=== PATIENT | female | born 1965 | race Caucasian/White ===

== ENCOUNTER 2016-08-08 12:16 | Emergency (ER) | payer MEDICAID ==
[2015-05-15 01:15] VITALS: BMI 32.5
[~2016-08-08 12:16] MED LIST: ATIVAN1 MG PO; CYCLOBENZAPRINE5 MG OR; ESGIC TABLET1 TAB PO; FIORICET/ESGIC1 TAB PO; LEVAQUIN750 MG PO; LEXAPRO10 MG PO; MEDROL DOSE PACK4 MG PO; MOBIC7.5 MG PO; MUCINEX600 MG OR; PRILOSEC20 MG PO; ROBITUSSIN AC (10 M1 PO; SOMA350 MG PO; TESSALON PERLE100 MG OR; VENTOLIN HFA18 GM INH
== END 2016-08-08 15:26 | disposition home or self-care (01) ==
LOC: D.ER 12:16
DX: M25.461 Effusion, right knee (principal); M17.11 Unilateral primary osteoarthritis, right knee; E66.9 Obesity, unspecified; M25.571 Pain in right ankle and joints of right foot; M25.561 Pain in right knee; W01.0XXA Fall on same level from slipping, tripping and stumbling without subsequent striking against object, initial encounter; Y93.89 Activity, other specified; Y92.019 Unspecified place in single-family (private) house as the place of occurrence of the external cause; F32.9 Major depressive disorder, single episode, unspecified

== ENCOUNTER 2017-11-12 20:25 | Emergency (ER) | payer SELFPAY ==
[~2017-11-12] VITALS: Ht 165.1 cm; Wt 81.8 kg
[2017-11-12 20:26] VITALS: Ht 165.1 cm; Wt 81.8 kg
[2017-11-12] MEDS ORDERED: QVAR8.7 G1 INH (20:29)
[2017-11-12] MEDS ORDERED: BACTRIM DS TABL1 TAB PO (21:26)
[2017-11-12] MEDS ORDERED: PROVENTIL HFA6.7 GM INH (21:26)
[2017-11-13 02:26] VITALS: BP 144/90
== END 2017-11-12 22:48 | disposition home or self-care (01) ==
LOC: D.ER 20:25
DX: J44.1 Chronic obstructive pulmonary disease with (acute) exacerbation (principal); L03.115 Cellulitis of right lower limb; S80.861A Insect bite (nonvenomous), right lower leg, initial encounter; W57.XXXA Bitten or stung by nonvenomous insect and other nonvenomous arthropods, initial encounter; Y93.89 Activity, other specified; Y92.89 Other specified places as the place of occurrence of the external cause; F17.200 Nicotine dependence, unspecified, uncomplicated

== ENCOUNTER 2020-08-29 19:55 | Inpatient (IN) | payer OTHER ==
[~2020-08-29] VITALS: Ht 165.1 cm; Wt 90.7 kg
[~2020-08-29 19:55] MED LIST changes: +BACTRIM DS TABL1 TAB PO; +PROVENTIL HFA6.7 GM INH; +QVAR8.7 G1 INH
[2020-08-29 20:31] LABS: BASOPHILS 0.5 % (0-2); EOSINOPHILS 0.2 % (0-7); HEMATOCRIT 42.4 % (36.0-48.0); HEMOGLOBIN 13.6 g/dL (12-16); IMMATURE GRANULOCYTES 0.2 % (0-5); LYMPHOCYTE ABS# 1.46 10x3/uL (1.18-3.74); LYMPHOCYTES 24.9 % (15-50); MCH 30.9 pg (26.0-34.0); MCHC 32.1 g/dL (31.0-37.0); MCV 96.4 fL (80.0-100.0); MEAN PLATELET VOLUME 10.8 fL (7.4-10.4); MONOCYTES 7.2 % (2-11); NEUTROPHIL ABS# 3.93 10x3/uL (1.56-6.13); PLATELET COUNT 190 10x3/uL (130-400); RDW 14.1 % (11.5-14.5); WBC 5.9 10x3/uL (4.8-10.8)
[2020-08-29] MEDS ORDERED: PROAIR HFA8.5 G1 INH (20:39)
[2020-08-29 20:42] LABS: CALC OSMOLALITY 276 mosm/kg (275-300); CARBON DIOXIDE 31.6 mmol/L (21.0-32.0); CHLORIDE - SERUM 102 mmol/L (98-107); GLUCOSE 91 mg/dL (74-106); SODIUM 139 mmol/L (136-145); UREA NITROGEN 11 mg/dL (7-18); eGFR NON AFRICAN AMERICAN 61 mL/min (90-120)
[2020-08-29 20:56] LABS: ALBUMIN 2.7 g/dL (3.4-5.0); ALKALINE PHOSPHATASE 30 U/L (30-120); ALT (SGPT) 32 U/L (10-68); PRO BNP 52 pg/mL (0-125); PROTEIN - SERUM 7.1 g/dL (6.4-8.2); TROPONIN-I < 0.017 ng/mL (0.000-0.060)
[2020-08-29 21:05] VITALS: BP 152/96
[2020-08-29 22:12] VITALS: BP 141/83
[2020-08-29] MEDS ORDERED: DOXYCYCLINE HY100 M2 PO (22:56)
[2020-08-29 23:15] VITALS: BP 132/85
[2020-08-30 01:06] VITALS: BP 137/98; BMI 33.3
[2020-08-30 03:01] LABS: UDS - AMPHET NEGATIVE QUAL (NEGATIVE); UDS - BARB NEGATIVE QUAL (NEGATIVE); UDS - BENZO NEGATIVE QUAL (NEGATIVE); UDS - COCAINE NEGATIVE QUAL (NEGATIVE); UDS - OPIATE NEGATIVE QUAL (NEGATIVE); UDS - PCP NEGATIVE QUAL (NEGATIVE); UDS - THC POSITIVE QUAL (NEGATIVE)
[2020-08-30 03:03] LABS: BILIRUBIN NEGATIVE (NEGATIVE); KETONE NEGATIVE (NEGATIVE); NITRITE NEGATIVE (NEGATIVE); UROBILINOGEN NORMAL mg/dL (< 2)
[2020-08-30 04:00] VITALS: BP 126/80
[2020-08-30 06:39] LABS: BASOPHILS 0.2 % (0-2); EOSINOPHILS 0 % (0-7); HEMATOCRIT 43.1 % (36.0-48.0); HEMOGLOBIN 13.9 g/dL (12-16); IMMATURE GRANULOCYTES 0.2 % (0-5); LYMPHOCYTE ABS# 0.82 10x3/uL (1.18-3.74); LYMPHOCYTES 19.2 % (15-50); MCH 30.8 pg (26.0-34.0); MCHC 32.3 g/dL (31.0-37.0); MCV 95.4 fL (80.0-100.0); MEAN PLATELET VOLUME 11.4 fL (7.4-10.4); MONOCYTES 2.1 % (2-11); NEUTROPHIL ABS# 3.34 10x3/uL (1.56-6.13); NEUTROPHILS 78.3 % (40-80); PLATELET COUNT 183 10x3/uL (130-400); RBC 4.52 10x6/uL (4.00-5.40)
[2020-08-30 06:54] LABS: WBC 4.3 10x3/uL (4.8-10.8)
[2020-08-30 07:08] LABS: ALBUMIN 2.5 g/dL (3.4-5.0); ALKALINE PHOSPHATASE 29 U/L (30-120); ALT (SGPT) 27 U/L (10-68); BILIRUBIN - TOTAL 0.15 mg/dL (0.2-1.3); CALC OSMOLALITY 280 mosm/kg (275-300); CALCIUM 9.2 mg/dL (8.5-10.1); CARBON DIOXIDE 28.6 mmol/L (21.0-32.0); CHLORIDE - SERUM 102 mmol/L (98-107); CREATININE - SERUM 0.8 mg/dL (0.6-1.3); MAGNESIUM - SERUM 2.2 mg/dL (1.8-2.4); PHOSPHOROUS 3.4 mg/dL (2.5-4.9); POTASSIUM - SERUM 4.4 mmol/L (3.5-5.1); PROTEIN - SERUM 7.1 g/dL (6.4-8.2); SODIUM 139 mmol/L (136-145); UREA NITROGEN 11 mg/dL (7-18); eGFR NON AFRICAN AMERICAN 78 mL/min (90-120)
[2020-08-30 07:10] LABS: GLUCOSE 177 mg/dL (74-106)
--- NOTE | 2020-08-30 07:33 | NUR ---
RECIEVED BEDSIDE REPORT. BED LOW POSITION, CALL LIGHT IN REACH. PATIENT FREE FROM SIGNS OF DISTRESS. DENIES NEEDS AT THIS TIME. WILL CONTINUE TO MONITOR.
[2020-08-30 09:34] VITALS: BP 155/98
[2020-08-30 13:44] VITALS: BP 145/88
--- NOTE | 2020-08-30 19:45 | NUR ---
RECEIVED BEDSIDE REPORT. PT LAYING IN BED A&O X4. PIV TO LEFT AC, PATENT AND S/L, NO REDNESS OR SWELLING. O2 SAT 97% ON 2L VIA NC. MISSING TEETH. PT ABLE TO AMBULATE AD EBONY. EDUCATED PT ON CL AND NEEDS, VERBALIZED UNDERSTANDING. BED LOW, CL IN REACH.
[2020-08-30 20:00] VITALS: BP 134/79
[2020-08-31 04:00] VITALS: BP 134/84
[2020-08-31 05:37] LABS: BASOPHILS 0.1 % (0-2); EOSINOPHILS 0 % (0-7); HEMATOCRIT 40.3 % (36.0-48.0); HEMOGLOBIN 12.9 g/dL (12-16); IMMATURE GRANULOCYTES 0.6 % (0-5); LYMPHOCYTE ABS# 1.01 10x3/uL (1.18-3.74); MCH 30.6 pg (26.0-34.0); MCV 95.7 fL (80.0-100.0); MEAN PLATELET VOLUME 10.9 fL (7.4-10.4); MONOCYTES 8.6 % (2-11); NEUTROPHILS 75.7 % (40-80); RBC 4.21 10x6/uL (4.00-5.40); RDW 14.1 % (11.5-14.5)
[2020-08-31 05:42] LABS: PLATELET COUNT 227 10x3/uL (130-400); WBC 6.7 10x3/uL (4.8-10.8)
[2020-08-31 05:51] LABS: ALBUMIN 2.4 g/dL (3.4-5.0); ANION GAP 11.2 mmol/L (8-16); BILIRUBIN - TOTAL 0.15 mg/dL (0.2-1.3); CALCIUM 8.9 mg/dL (8.5-10.1); CARBON DIOXIDE 30.5 mmol/L (21.0-32.0); MAGNESIUM - SERUM 2.1 mg/dL (1.8-2.4); PHOSPHOROUS 3.9 mg/dL (2.5-4.9); POTASSIUM - SERUM 4.7 mmol/L (3.5-5.1); PROTEIN - SERUM 6.7 g/dL (6.4-8.2)
--- NOTE | 2020-08-31 06:21 | NUR ---
PT C/O PAIN IN RIGHT EAR AND BACK SPASMS. SHE STATES "I KNOW WHY I USED TO TAKE SOMAS FOR THE BACK SPASMS". I EDUCATED PT THAT I WOULD LET DAY SHIFT NURSE KNOW AND WE WILL REPORT TO THE MD. PT HAS BEEN EDUCATED IN REGARDS TO HER MED REC AND CLAIM HISTORY. PT VERBALIZED UNDERSTANDING. DENIES OTHER NEEDS, CL IN REACH
--- NOTE | 2020-08-31 07:30 | NUR ---
AWAKE AND ALERT. ORIENTED X3. C/O NOT FEELING WELL THIS AM. LUNGS HAVE CRACKLES IN UPPER LOBES AND WHEEZES IN LOWER LOBES, SOMETIMES PRODUCTIVE COUGH NOTED WITH YELLOW SPUTUM. SL TO LEFT AC PATENT WITHOUT REDNESS AT INSERTION SITE. DENIES NEEDS
[2020-08-31 08:52] VITALS: BP 154/78
--- NOTE | 2020-08-31 10:00 | NUR ---
ATE MOST OF BREAKFAST. TOOK AM MEDS WITHOUT DIFFICULTY. DENIES NEEDS.
[2020-08-31 12:29] VITALS: BP 143/77
--- NOTE | 2020-08-31 12:30 | NUR ---
LUNCH SERVED IN ROOM. FEEDS SELF. UP TO BR PER SELF.
[2020-08-31 12:45] VITALS: Ht 165.1 cm; Wt 90.7 kg
--- NOTE | 2020-08-31 15:00 | NUR ---
RESTING QUIETLY IN BED WITH EYES CLOSED.
[2020-08-31 17:12] VITALS: BP 140/91
--- NOTE | 2020-08-31 18:25 | NUR ---
ATE MOST OF SUPPER. NO CHANGES NOTED. DENIES NEEDS.
--- NOTE | 2020-08-31 19:54 | NUR ---
RECEIVED BEDSIDE REPORT. PT LAYING IN BED A&O X4. PIV TO LEFT AC, PATENT AND S/L, NO REDNESS OR SWELLING. O2 SAT 97% ON 2L VIA NC. TELEMETRY IN PLACE, SR 89. EDUCATED PT ON CL AND NEEDS, VERBALIZED UNDERSTANDING. BED LOW, CL IN REACH.
--- NOTE | 2020-08-31 22:19 | NUR ---
PT C/O PAIN IN IV SITE WITH ABX, STATES THAT SHE WANTS IT REMOVED. REMOVED PIV FROM LEFT AC, CATH INTACT, NO REDNESS OR SWELLING. INITIATED NEW PIV TO LEFT WRIST, 20G X1 ATTEMPT, FLUSHED WELL, GOOD RETURN, PT TOLERATED WELL. BED LOW, CL IN REACH.
[2020-09-01 05:48] VITALS: BP 171/104
[2020-09-01 06:04] VITALS: BP 155/85
[2020-09-01 06:46] LABS: BASOPHILS 0.1 % (0-2); EOSINOPHILS 0 % (0-7); HEMATOCRIT 40.4 % (36.0-48.0); HEMOGLOBIN 12.6 g/dL (12-16); IMMATURE GRANULOCYTES 0.9 % (0-5); MCH 30.1 pg (26.0-34.0); MCHC 31.2 g/dL (31.0-37.0); MCV 96.7 fL (80.0-100.0); MEAN PLATELET VOLUME 11.1 fL (7.4-10.4); MONOCYTES 4.3 % (2-11); NEUTROPHIL ABS# 6.27 10x3/uL (1.56-6.13); NEUTROPHILS 81.7 % (40-80); PLATELET COUNT 237 10x3/uL (130-400); RBC 4.18 10x6/uL (4.00-5.40); RDW 14.2 % (11.5-14.5); WBC 7.7 10x3/uL (4.8-10.8)
[2020-09-01 07:15] LABS: IMMUNOGLOBULIN A 259 mg/dL (87-352); IMMUNOGLOBULIN G 1161 mg/dL (586-1602)
[2020-09-01 07:21] LABS: ALBUMIN 2.4 g/dL (3.4-5.0); ALKALINE PHOSPHATASE 26 U/L (30-120); ALT (SGPT) 37 U/L (10-68); BILIRUBIN - TOTAL 0.22 mg/dL (0.2-1.3); CALC OSMOLALITY 288 mosm/kg (275-300); CALCIUM 8.9 mg/dL (8.5-10.1); CARBON DIOXIDE 27.9 mmol/L (21.0-32.0); CHLORIDE - SERUM 106 mmol/L (98-107); CREATININE - SERUM 0.8 mg/dL (0.6-1.3); GLUCOSE 134 mg/dL (74-106); MAGNESIUM - SERUM 2.1 mg/dL (1.8-2.4); POTASSIUM - SERUM 4.7 mmol/L (3.5-5.1); PROTEIN - SERUM 6.4 g/dL (6.4-8.2); SODIUM 143 mmol/L (136-145); UREA NITROGEN 18 mg/dL (7-18); eGFR NON AFRICAN AMERICAN 78 mL/min (90-120)
[2020-09-01 08:27] VITALS: BP 156/83
[2020-09-01 12:43] VITALS: BP 137/85
--- NOTE | 2020-09-01 13:50 | NUR ---
PT HAS BEED VERY TEARFUL ON AND OFF TODAY, COMPLAINTS OF BAD HEADACHE AND BREATHING TREATMENTS TO CLOSE TOGETHER THAT MADE HER CHEST HURT, PT WAS CRYING UNCONTROLLABLY AND CALLED THE COMMUNITY DEVELOPMENT SPECIALIST EARLIER TODAY REQUESTING TO SEE HER DOCTOR. PT WAS GIVEN TYLENTOL FOR HEADACHE AND DR VELEZ WAS IN FOR GURU
[2020-09-01 17:23] VITALS: BP 159/87
[2020-09-01 20:00] VITALS: BP 150/91
--- NOTE | 2020-09-01 20:30 | NUR ---
RESTING WITH EYES CLOSED. RESP EVEN AND UNALBORED. NO DISTRESS NOTED. CL IN REACH
[2020-09-02 05:34] LABS: BASOPHILS 0.1 % (0-2); EOSINOPHILS 0 % (0-7); IMMATURE GRANULOCYTES 1.7 % (0-5); LYMPHOCYTE ABS# 1.17 10x3/uL (1.18-3.74); LYMPHOCYTES 11.8 % (15-50); MCH 30.7 pg (26.0-34.0); MCHC 31.7 g/dL (31.0-37.0); MCV 96.7 fL (80.0-100.0); MEAN PLATELET VOLUME 10.9 fL (7.4-10.4); MONOCYTES 4.7 % (2-11); NEUTROPHIL ABS# 8.12 10x3/uL (1.56-6.13); NEUTROPHILS 81.7 % (40-80); PLATELET COUNT 269 10x3/uL (130-400); RBC 4.24 10x6/uL (4.00-5.40); RDW 14.2 % (11.5-14.5)
[2020-09-02 05:37] LABS: WBC 9.9 10x3/uL (4.8-10.8)
[2020-09-02 05:59] LABS: ALBUMIN 2.5 g/dL (3.4-5.0); ANION GAP 10.2 mmol/L (8-16); BILIRUBIN - TOTAL 0.21 mg/dL (0.2-1.3); CALCIUM 8.9 mg/dL (8.5-10.1); CARBON DIOXIDE 30.5 mmol/L (21.0-32.0); MAGNESIUM - SERUM 1.9 mg/dL (1.8-2.4); PHOSPHOROUS 3.9 mg/dL (2.5-4.9); POTASSIUM - SERUM 4.7 mmol/L (3.5-5.1); PROTEIN - SERUM 6.6 g/dL (6.4-8.2)
[2020-09-02 06:02] LABS: CREATININE - SERUM 1.1 mg/dL (0.6-1.3)
[2020-09-02 07:00] VITALS: BP 145/88
--- NOTE | 2020-09-02 07:51 | NUR ---
RESTING IN BED WITH EYES OPEN, ALERT AND ORIENTED. CURRENTLY RCVING 2L VIA NC. IV LOCATED TO LEFT WRIST CURRENTLY SL. NO CURRENT S/S OF DISTRESS, DENIES CURRENT NEEDS, WILL CONT TO MONITOR.
--- NOTE | 2020-09-02 12:30 | NUR ---
PT C/O SHARP CHEST PAINS, CALLED TELEMETRY AND PER TECH PATIENT IS 78SR, DR GUPTA CAME TO ROOM, CARDIAC WORKUP ORDERED, WELL PROTONIX IV BID. PATIENTS STATES PAIN IS STARTING TO EASE, CONTINUE WITH PLAN OF CARE
--- NOTE | 2020-09-02 12:46 | NUR ---
LOOKED AT EKG. PT STATES CHEST PAIN HAS EASED UP. WAS INSTRUCTED TO ORDER CHEST XRAY. WILL CONT TO MONITOR.
[2020-09-02 13:11] LABS: CKMB 1.4 U/L (0.0-3.6); CREATINE KINASE 54 UL (21-215)
[2020-09-02 13:14] LABS: TROPONIN-I < 0.017 ng/mL (0.000-0.060)
--- NOTE | 2020-09-02 14:30 | NUR ---
PT STATES THAT HER CHEST IS "EMERSON FEELING LIKE IT DID EARLIER" CALLED RUBIA HARDY, AFTER REVIEWING THAT HER CARDIAC WORKUP CAME BACK CLEAR WITH NO CAUSE FOR CONCERN, WAS ADVISED TO GO AHEAD AND CONSULT CARDIOLOGY. WILL CONT TO MONITOR.
--- NOTE | 2020-09-02 14:49 | NUR ---
PT HAS BECOME TEARFUL STATING SHE HAS A HEADACHE, ADMINISTERED HER TYLENOL PER S ORDERS, WILL CONT TO MONITOR.
[2020-09-02 15:07] VITALS: BP 141/82
[2020-09-02 18:53] LABS: CKMB 1.2 U/L (0.0-3.6); CREATINE KINASE 53 UL (21-215)
[2020-09-02 18:58] LABS: TROPONIN-I < 0.017 ng/mL (0.000-0.060)
[2020-09-02 20:42] VITALS: BP 126/70
--- NOTE | 2020-09-02 23:41 | NUR ---
I have reviewed this patient and I concur with the Shift Assessment completed by the Licensed Practical Nurse today this shift.
[2020-09-03 01:46] LABS: CKMB 0.9 U/L (0.0-3.6); CREATINE KINASE 62 UL (21-215)
[2020-09-03 01:48] LABS: TROPONIN-I < 0.017 ng/mL (0.000-0.060)
[2020-09-03 03:06] LABS: IMMUNOGLOBULIN E 267 IU/mL (6-495)
[2020-09-03 06:49] LABS: ALBUMIN 2.6 g/dL (3.4-5.0); ALKALINE PHOSPHATASE 26 U/L (30-120); ALT (SGPT) 61 U/L (10-68); BILIRUBIN - TOTAL 0.26 mg/dL (0.2-1.3); CALC OSMOLALITY 285 mosm/kg (275-300); CALCIUM 9.4 mg/dL (8.5-10.1); CARBON DIOXIDE 30.2 mmol/L (21.0-32.0); CHLORIDE - SERUM 105 mmol/L (98-107); GLUCOSE 130 mg/dL (74-106); MAGNESIUM - SERUM 2.1 mg/dL (1.8-2.4); PHOSPHOROUS 4.3 mg/dL (2.5-4.9); POTASSIUM - SERUM 4.6 mmol/L (3.5-5.1); PROTEIN - SERUM 6.5 g/dL (6.4-8.2); SODIUM 141 mmol/L (136-145); UREA NITROGEN 22 mg/dL (7-18)
[2020-09-03 06:51] LABS: BASOPHILS 0 % (0-2); EOSINOPHILS 0 % (0-7); HEMATOCRIT 41.7 % (36.0-48.0); HEMOGLOBIN 13.3 g/dL (12-16); IMMATURE GRANULOCYTES 2.2 % (0-5); LYMPHOCYTE ABS# 1.43 10x3/uL (1.18-3.74); LYMPHOCYTES 16.3 % (15-50); MCH 30.6 pg (26.0-34.0); MCHC 31.9 g/dL (31.0-37.0); MCV 95.9 fL (80.0-100.0); MEAN PLATELET VOLUME 10.6 fL (7.4-10.4); MONOCYTES 5.9 % (2-11); NEUTROPHIL ABS# 6.61 10x3/uL (1.56-6.13); NEUTROPHILS 75.6 % (40-80); PLATELET COUNT 288 10x3/uL (130-400); RBC 4.35 10x6/uL (4.00-5.40); RDW 14.3 % (11.5-14.5); WBC 8.8 10x3/uL (4.8-10.8)
[2020-09-03 06:55] LABS: CREATININE - SERUM 0.8 mg/dL (0.6-1.3); eGFR NON AFRICAN AMERICAN 78 mL/min (90-120)
[2020-09-03 10:18] VITALS: BP 135/92
[2020-09-03 14:00] VITALS: BP 168/102
[2020-09-03 17:54] VITALS: BP 158/89
--- NOTE | 2020-09-03 18:34 | NUR ---
IN BED, RESTING. FREE FROM SIGNS OF DISTRESS, AROUSES TO VOICE, DENIES NEEDS AT THIS TIME. BED LOW POSITION, CALL LIGHT INR EACH. WILL CONTINUE TO MONITOR.
--- NOTE | 2020-09-03 19:45 | NUR ---
RECEIVED BEDSIDE REPORT. PT LAYING IN BED A&O X4. PIV TO LEFT UPPER ARM, PATENT AND S/L, NO REDNESS OR SWELLING. LUNG SOUNDS DIMINSHED IN LOWER LOBES, WHEEZING IN UPPER LOBES, PRODUCTIVE COUGH, WHITE SPUTUM, O2 SAT 97% ON 2L VIA NC. TELEMETRY IN PLACE, 73SR. PT ABLE TO AMBULATE AD EBONY. EDUCATED PT ON CL AND NEEDS, VERBALIZED UNDERSTANDING. BED LOW, CL IN REACH.
[2020-09-03 20:00] VITALS: BP 149/95
[2020-09-04 04:00] VITALS: BP 149/82
[2020-09-04 06:05] LABS: BASOPHILS 0.3 % (0-2); EOSINOPHILS 0 % (0-7); HEMATOCRIT 40.2 % (36.0-48.0); HEMOGLOBIN 13.2 g/dL (12-16); LYMPHOCYTES 25.1 % (15-50); MCH 30.5 pg (26.0-34.0); MCHC 32.8 g/dL (31.0-37.0); MEAN PLATELET VOLUME 8.6 fL (7.4-10.4); MONOCYTES 8.1 % (2-11); NEUTROPHILS 66.5 % (40-80); PLATELET COUNT 312 10x3/uL (130-400); RBC 4.33 10x6/uL (4.00-5.40); RDW 13.9 % (11.5-14.5); WBC 9.6 10x3/uL (4.8-10.8)
[2020-09-04 06:22] LABS: MCV 92.8 fL (80.0-100.0)
[2020-09-04 06:27] LABS: ALBUMIN 2.5 g/dL (3.4-5.0); ANION GAP 9.2 mmol/L (8-16); BILIRUBIN - TOTAL 0.25 mg/dL (0.2-1.3); CALCIUM 9.3 mg/dL (8.5-10.1); CARBON DIOXIDE 29.8 mmol/L (21.0-32.0); PROTEIN - SERUM 6.1 g/dL (6.4-8.2)
--- NOTE | 2020-09-04 07:25 | NUR ---
REC'D IN ROOM AWAKE AND ALERT. RESP EVEN AND UNLABORED WITH NO DISTRESS NOTED OR VOICED. CAN EXPRESS NEEDS AND WANTS. NO C/O NOTED OR VOICED. ASSESSMENT COMPLETED. C/L IN REACH AT BEDSIDE.
[2020-09-04 10:02] VITALS: BP 132/77
--- NOTE | 2020-09-04 14:12 | MORECARE ---
CASE MANAGEMENT DISCHARGE SUMMARY PATIENT: CHRISTA MORRISON UNIT: [id number] ADM DATE: 08/30/20 AGE: 54 : 61 SEX: F ROOM/BED: D.3789 AUTHOR: KATHLEEN IVERSON PHYSICIAN: REFERRING PHYSICIAN: SAYDA BOLTON MD DATE OF SERVICE: 09/04/20 Case Management Discharge Planning Summary DCP REVIEW SUMMARY ANTICIPATED D/C DATE: EXPECTED LOS : CASE STATUS: DCP Initiated INITIAL REVIEW: 08/30/2020 INITIAL REVIEWER: Zarina Ram FINAL DISCHARGE DISPOSITION: 01 : Home or Self Care (Routine Discharge) FINAL REVIEWER: FINAL REVIEW DATE: DCP Focus Questions & Answers DCP Screen QUESTION: ANSWER High Risk Factors: : Hosp related to CHF, COPD, DM, End Stage Ds, CVA, CA DCP Evaluation QUESTION: ANSWER Patient and/or caregiver agree upon recommended discharge plan? : Yes Patient's current cognitive status: : *Oriented to person, place, situation, time and present Patient's ability to cope with chronic illness : d. No chronic illness Does the patient have the ability to pay for or attain post discharge needs / services? : Yes Functional screen assessment: : Basic needs can adequately be met by self Family / Caregiver's ability to cope with chronic illness: : a. Adequate (ability to meet patient's medical needs, ensures patient attends medical appts.) Physical Status: : Independent with ADL's Equipment needed for post hospitalization: : Nebulizer Is there a likelihood that the patient will require additional services to return to the preadmission environment? : No Living Arrangements: : Home with others Results of this evaluation have been discussed with: : Patient Patient with capacity for self-care or can be cared for in same environment as prior to hospitalization? 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 : No Pharm[facility] name(s): : [facility] NO PCP Planned post hospital services covered by insurance plan? : No Does Patient have transportation to get home and to follow-up medical appointments when discharged from the hospital? : Yes Comments: : HER SISTER Would patient like to participate in any Care Coordination programs (if applicable): : Not applicable Does the patient have electricity at home? : Yes Does the patient have running water in their house? : Yes Comment (running water): : WELL WATER Equipment in use: : None Other Equipment comments: : NEEDS A NEBULIZER Mental health screen: : No mental health history Psychosocial status: : Care provider to others DCP Re-evaluation QUESTION: ANSWER Would patient like to participate in any Care Coordination programs (if applicable): : Not applicable PATIENT: CHRISTA MORRISON ENCOUNTER: [id number] MEDICAL RECORD#: [id number] ADMISSION DATE: 08/30/2020 DISCHARGE DATE: ATTENDING MD: SAYDA RIVERA : AGE: 54 MARITAL STATUS: S DC PLAN ID: [id number] FACILITY: [facility] PRINTED ON: 09/04/20 14:12 CT All edits/amendments must be made on the electronic document DICTATION DATE: 09/04/201410 MEMBERSHIP COUNSELOR: ALFONSO 09/04/20 141 RPT#: [id number] DC DATE: STATUS: ADM IN [facility] [address] [place] [address] END OF REPORT
--- NOTE | 2020-09-04 14:40 | MORECARE ---
CASE MANAGEMENT DISCHARGE SUMMARY PATIENT: CHRISTA MORRISON UNIT: [id number] ADM DATE: 08/30/20 AGE: 54 : 61 SEX: F ROOM/BED: D.2209 AUTHOR: KATHLEEN IVERSON PHYSICIAN: REFERRING PHYSICIAN: SAYDA BOLTON MD DATE OF SERVICE: 09/04/20 Case Management Discharge Planning Summary COMMENTS ENTERED DATE: 09/04/20 14:23 CT COMMENT TYPE: Discharge Planning REVIEWER: Zarina Ram CM met with patient to complete initial dc planning assessment. CM educated patient on the CM role and verbal consent given by patient to complete assessment. 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 At discharge patient plans to return home and feels this is a safe discharge. CM discussed availability of home health, rehab services, and medical equipment. She said that her sister will be her delivery driver/supervisor home. She said that she has well water and electricity at home. She said that they have had a mice problem when the snow and ice hit & they are doing the best they can. She feels safe returning home. She is independent with her care. She does not use a DME. Dr Kaplan wants her to have a nebulizer, I have ordered that through [employer] & they will deliver to the hospital before she is discharged. She did not qualify for home O2, the her lowest O2 sat was 93% while ambulating. Patient did complain about a weekend nurse and would like to speak with the legal manager, I did let [place] know. CM will continue to follow and will assist as needed with dc plans/needs. DCP REVIEW SUMMARY ANTICIPATED D/C DATE: EXPECTED LOS : CASE STATUS: DCP Initiated INITIAL REVIEW: 08/30/2020 INITIAL REVIEWER: Zarina Ram FINAL DISCHARGE DISPOSITION: 01 : Home or Self Care (Routine Discharge) FINAL REVIEWER: FINAL REVIEW DATE: DCP Focus Questions & Answers DCP Screen QUESTION: ANSWER High Risk Factors: : Hosp related to CHF, COPD, DM, End Stage Ds, CVA, CA DCP Evaluation QUESTION: ANSWER Patient and/or caregiver agree upon recommended discharge plan? : Yes Patient's current cognitive status: : *Oriented to person, place, situation, time and present Patient's ability to cope with chronic illness : d. No chronic illness Does the patient have the ability to pay for or attain post discharge needs / services? : Yes Functional screen assessment: : Basic needs can adequately be met by self Family / Caregiver's ability to cope with chronic illness: : a. Adequate (ability to meet patient's medical needs, ensures patient attends medical appts.) Physical Status: : Independent with ADL's Equipment needed for post hospitalization: : Nebulizer Is there a likelihood that the patient will require additional services to return to the preadmission environment? : No Living Arrangements: : Home with others Results of this evaluation have been discussed with: : Patient Patient with capacity for self-care or can be cared for in same environment as prior to hospitalization? 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 : No Pharmacy name(s): : [facility] NO PCP Planned post hospital services covered by insurance plan? : No Does Patient have transportation to get home and to follow-up medical appointments when discharged from the hospital? : Yes Comments: : HER SISTER Would patient like to participate in any Care Coordination programs (if applicable): : Not applicable Does the patient have electricity at home? : Yes Does the patient have running water in their house? : Yes Comment (running water): : WELL WATER Equipment in use: : None Other Equipment comments: : NEEDS A NEBULIZER Mental health screen: : No mental health history Psychosocial status: : Care provider to others DCP Re-evaluation QUESTION: ANSWER Would patient like to participate in any Care Coordination programs (if applicable): : Not applicable PATIENT: CHRISTA MORRISON ENCOUNTER: [id number] MEDICAL RECORD#: [id number] ADMISSION DATE: 08/30/2020 DISCHARGE DATE: ATTENDING MD: SAYDA RIVERA : AGE: 54 MARITAL STATUS: S DC PLAN ID: [id number] FACILITY: [facility] PRINTED ON: 09/04/20 14:40 CT All edits/amendments must be made on the electronic document DICTATION DATE: 09/04/201439 [employer] SOUNDINGS GROUP LEADER: ALFONSO 09/04/201439 RPT#: [id number] DC DATE: STATUS: ADM IN [facility] [address] [place] [address] END OF REPORT
[2020-09-04 14:48] VITALS: BP 142/88
[2020-09-04] MEDS ORDERED: MUCINEX DM ER1 EAC1 PO (15:47)
[2020-09-04] MEDS ORDERED: SINGULAIR10 MG PO (15:47)
[2020-09-04] MEDS ORDERED: DALIRESP250 MCG PO (15:47)
[2020-09-04] MEDS ORDERED: DULERA 200 MCG8.8 GM INH (15:47)
[2020-09-04] MEDS ORDERED: IPRAT-ALBUT 0.5-3 ML UPD (15:48)
[2020-09-04] MEDS ORDERED: OMNICEF300 MG PO (15:49)
[2020-09-04] MEDS ORDERED: ADOXA100 MG PO (15:49)
[2020-09-04] MEDS ORDERED: NICODERM CQ1 EAC3 TOPICAL (15:51)
[2020-09-04] MEDS ORDERED: PREDNISONE10 MG PO (15:51)
--- NOTE | 2020-09-04 18:01 | NUR ---
DC HOME AT THIS TIME VOICE UNDERSTANDING OF DC INSTUCTION. STABLE CONDITION UPON DEPARTURE.
--- NOTE | 2020-09-05 08:45 | MORECARE ---
CASE MANAGEMENT DISCHARGE SUMMARY PATIENT: CHRISTA MORRISON UNIT: [id number] ADM DATE: 08/30/20 AGE: 54 : 61 SEX: F ROOM/BED: D.2209 AUTHOR: KATHLEEN IVERSON PHYSICIAN: REFERRING PHYSICIAN: SAYDA BOLTON MD DATE OF SERVICE: 09/05/20 Case Management Discharge Planning Summary COMMENTS ENTERED DATE: 09/04/20 14:23 CT COMMENT TYPE: Discharge Planning REVIEWER: Zarina Ram CM met with patient to complete initial dc planning assessment. CM educated patient on the CM role and verbal consent given by patient to complete assessment. 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 At discharge patient plans to return home and feels this is a safe discharge. CM discussed availability of home health, rehab services, and medical equipment. She said that her sister will be her straddle truck driver home. She said that she has well water and electricity at home. She said that they have had a mice problem when the snow and ice hit & they are doing the best they can. She feels safe returning home. She is independent with her care. She does not use a DME. Dr Kaplan wants her to have a nebulizer, I have ordered that through [employer] & they will deliver to the hospital before she is discharged. She did not qualify for home O2, the her lowest O2 sat was 93% while ambulating. Patient did complain about a weekend nurse and would like to speak with the concessions manager, I did let [place] know. CM will continue to follow and will assist as needed with dc plans/needs. DCP REVIEW SUMMARY ANTICIPATED D/C DATE: EXPECTED LOS : 0 CASE STATUS: DCP Complete INITIAL REVIEW: 08/30/2020 INITIAL REVIEWER: Zarina Ram FINAL DISCHARGE DISPOSITION: 01 : Home or Self Care (Routine Discharge) FINAL REVIEWER: Zarina Ram FINAL REVIEW DATE: 09/05/2020 DCP Focus Questions & Answers DCP Screen QUESTION: ANSWER High Risk Factors: : Hosp related to CHF, COPD, DM, End Stage Ds, CVA, CA DCP Evaluation QUESTION: ANSWER Patient and/or caregiver agree upon recommended discharge plan? : Yes Patient's current cognitive status: : *Oriented to person, place, situation, time and present Patient's ability to cope with chronic illness : d. No chronic illness Does the patient have the ability to pay for or attain post discharge needs / services? : Yes Functional screen assessment: : Basic needs can adequately be met by self Family / Caregiver's ability to cope with chronic illness: : a. Adequate (ability to meet patient's medical needs, ensures patient attends medical appts.) Physical Status: : Independent with ADL's Equipment needed for post hospitalization: : Nebulizer Is there a likelihood that the patient will require additional services to return to the preadmission environment? : No Living Arrangements: : Home with others Results of this evaluation have been discussed with: : Patient Patient with capacity for self-care or can be cared for in same environment as prior to hospitalization? 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 : No Pharmacy name(s): : [facility] NO PCP Planned post hospital services covered by insurance plan? : No Does Patient have transportation to get home and to follow-up medical appointments when discharged from the hospital? : Yes Comments: : HER SISTER Would patient like to participate in any Care Coordination programs (if applicable): : Not applicable Does the patient have electricity at home? : Yes Does the patient have running water in their house? : Yes Comment (running water): : WELL WATER Equipment in use: : None Other Equipment comments: : NEEDS A NEBULIZER Mental health screen: : No mental health history Psychosocial status: : Care provider to others DCP Re-evaluation QUESTION: ANSWER Would patient like to participate in any Care Coordination programs (if applicable): : Not applicable PATIENT: CHRISTA MORRISON ENCOUNTER: [id number] MEDICAL RECORD#: [id number] ADMISSION DATE: 08/30/2020 DISCHARGE DATE: 09/04/2020 ATTENDING MD: SAYDA RIVERA : AGE: 54 MARITAL STATUS: S DC PLAN ID: [id number] FACILITY: [facility] PRINTED ON: 09/05/20 8:45 CT All edits/amendments must be made on the electronic document DICTATION DATE: 09/05/20844 SELF STORAGE MANAGER: ALFONSO 09/05/20844 RPT#: [id number] DC DATE:09/04/20 STATUS: DIS IN [facility] [address] [place] [address] END OF REPORT
== END 2020-09-04 18:03 | disposition home or self-care (01) | DRG 193 ==
LOC: D.ER 19:55 → D.MS 08-30 00:27 → OBSVTIME 08-30 00:28 → D.MS 08-30 13:35
PROVIDERS: Family Medicine; Family Medicine Adult Medicine; Internal Medicine Pulmonary Disease; ADMIT Emergency Medicine; ATTEND Emergency Medicine
DX: J18.9 Pneumonia, unspecified organism (principal); J96.21 Acute and chronic respiratory failure with hypoxia; J44.1 Chronic obstructive pulmonary disease with (acute) exacerbation; J44.0 Chronic obstructive pulmonary disease with (acute) lower respiratory infection; I10 Essential (primary) hypertension; F32.9 Major depressive disorder, single episode, unspecified; F41.8 Other specified anxiety disorders; M19.90 Unspecified osteoarthritis, unspecified site; F17.200 Nicotine dependence, unspecified, uncomplicated; I20.9 Angina pectoris, unspecified

== ENCOUNTER 2020-09-10 06:04 | Inpatient (IN) | payer OTHER ==
[2020-09-10] VITALS (36 sets, daily range): BP systolic 92–168; BP diastolic 69–99
[~2020-09-10] VITALS: Ht 165.1 cm; Wt 107.5 kg
[~2020-09-10 06:04] MED LIST changes: +ADOXA100 MG PO; +DALIRESP250 MCG PO; +DOXYCYCLINE HY100 M2 PO; +DULERA 200 MCG8.8 GM INH; +IPRAT-ALBUT 0.5-3 ML UPD; +MUCINEX DM ER1 EAC1 PO; +NICODERM CQ1 EAC3 TOPICAL; +OMNICEF300 MG PO; +PREDNISONE10 MG PO; +PROAIR HFA8.5 G1 INH; +SINGULAIR10 MG PO
[2020-09-10 07:32] LABS: BASOPHILS 0.1 % (0-2); EOSINOPHILS 0 % (0-7); HEMATOCRIT 40.9 % (36.0-48.0); HEMOGLOBIN 13.3 g/dL (12-16); LYMPHOCYTES 2.9 % (15-50); MCH 30.5 pg (26.0-34.0); MCHC 32.4 g/dL (31.0-37.0); MCV 94.2 fL (80.0-100.0); MEAN PLATELET VOLUME 8.7 fL (7.4-10.4); PLATELET COUNT 252 10x3/uL (130-400); RBC 4.34 10x6/uL (4.00-5.40); RDW 14.3 % (11.5-14.5); WBC 12.5 10x3/uL (4.8-10.8)
--- NOTE | 2020-09-10 07:32 | NUR ---
TO CT VIA STRETCHER.
[2020-09-10 07:37] LABS: ANION GAP 15.2 mmol/L (8-16); APTT 24.8 SECONDS (22.8-39.4); CARBON DIOXIDE 25.5 mmol/L (21.0-32.0); INR 1.22 (0.85-1.17); POTASSIUM - SERUM 3.7 mmol/L (3.5-5.1); PROTIME 14.3 SECONDS (11.6-15.0)
[2020-09-10 07:42] LABS: ALBUMIN 2.8 g/dL (3.4-5.0); BILIRUBIN - TOTAL 1.08 mg/dL (0.2-1.3); PROTEIN - SERUM 6.4 g/dL (6.4-8.2)
--- NOTE | 2020-09-10 08:00 | NUR ---
BACK TO ROOM. SHEETS AND PANTS SOAKED WITH URINE. ASSISTED INTO A GOWN AND LINENS CHANGED. C/O PAIN. STATES "I JUST CAN'T STAND THIS." MOVING RESTLESSLY. UNABLE TO FIND POSITION OF COMFORT. STATES "I JUST CAN'T GET ENOUGH AIR".
--- NOTE | 2020-09-10 08:12 | NUR ---
PATIENT FOUND STANDING AT BEDSIDE URINATING IN THE FLOOR. STATED "I COULDN'T WAIT". ASSISTED BACK TO BED.
--- NOTE | 2020-09-10 08:33 | NUR ---
PATIENT IS SLEEPING FOLLOWING ADMINISTRATION OF HYDROMORPHONE 1MG IV. VSS.
--- NOTE | 2020-09-10 08:43 | NUR ---
SURGICAL GROUP REINFORCED CONCRETE INSPECTOR HERE.
--- NOTE | 2020-09-10 11:45 | NUR ---
HEART RATE IN 130S SINUS TACHYCARDIA. ASSISTED UP TO BSC TO VOID. HR INCREASED TO 140S. DR. BROOKS INFORMED . ORDER TO ADMINISTER TOTAL OF 30ML/KG OF FLUIDS = 2700ML. IV PUMP NS INCREASED TO 999ML/HR.
--- NOTE | 2020-09-10 12:10 | NUR ---
HEAT TRANSFER TECHNICIAN FOR DR. ANDUJAR PAGED. INFORMED OF PATIENT'S INCREASED HR. HEAT TRANSFER TECHNICIAN ASKS HOW MUCH FLUID PATIENT HAS HAD. INFORMED HER OF DR. BROOKS'S ORDER. WHEN ASKED HOW SOON PATIENT WOULD BE GOIONG TO THE OR STATES "SHE IS AN ADD-ON. I DON'T KNOW IF IT WILL BE IN ONE HOUR OR AT FIVE O'CLOCK. ALSO STATED "WE MAY HAVE TO CANCEL HER FOR TODAY. I DON'T WANT TO TAKE HER TO THE OR WITH A TACHY RATE." THIS NURSE VOICED CONCERN THAT PATIENT'S CONDITION WOULD CONTINUE TO WORSEN. HEAT TRANSFER TECHNICIAN STATED SHE WOULD SPEAK WITH DR. ANDUJAR ON PLAN.
--- NOTE | 2020-09-10 12:20 | NUR ---
VEHICLE LEASING AND RENTAL MANAGER CALLS BACK. STATES PATIENT WILL GO TO OR TODAY BUT IT WILL BE LATER DUE TO NO OR AVAILABLE. STATES WE COULD TX PATIENT TO ICU. THIS NURSE REQUESTED VEHICLE LEASING AND RENTAL MANAGER TO ENTER THAT ORDER.
--- NOTE | 2020-09-10 12:36 | NUR ---
OR CALLS. WILL PICK PATIENT UP SOON. URINE SPECIMEN TO LAB.
--- NOTE | 2020-09-10 12:55 | NUR ---
TO OR VIA STRETCHER.
[2020-09-10 13:06] LABS: BILIRUBIN NEGATIVE (NEGATIVE); KETONE NEGATIVE (NEGATIVE); NITRITE NEGATIVE (NEGATIVE)
[2020-09-10 13:07] LABS: BACTERIA FEW HPF (NONE SEEN); SQUAMOUS EPITHELIAL OCC HPF (0-4); WHITE CELLS - URINE RARE HPF (0-4)
--- NOTE | 2020-09-10 17:10 | NUR ---
ELOISA HARVEY AT BEDSIDE PLACING CENTRAL LINE.
[2020-09-10 19:32] LABS: HEMATOCRIT 40.5 % (36.0-48.0); HEMOGLOBIN 13.2 g/dL (12-16)
[2020-09-11] VITALS (25 sets, daily range): BP systolic 84–120; BP diastolic 63–81; BMI 39.4; BMI 39.3
[2020-09-11 05:05] LABS: BASOPHILS 0 % (0-2); EOSINOPHILS 0 % (0-7); HEMATOCRIT 42.3 % (36.0-48.0); HEMOGLOBIN 13.9 g/dL (12-16); LYMPHOCYTES 2.6 % (15-50); MCHC 32.8 g/dL (31.0-37.0); MCV 94.4 fL (80.0-100.0); MEAN PLATELET VOLUME 9.1 fL (7.4-10.4); MONOCYTES 2.1 % (2-11); NEUTROPHILS 95.3 % (40-80); RBC 4.48 10x6/uL (4.00-5.40); RDW 14.5 % (11.5-14.5)
[2020-09-11 05:23] LABS: PLATELET COUNT 157 10x3/uL (130-400); WBC 8.5 10x3/uL (4.8-10.8)
[2020-09-11 05:51] LABS: BILIRUBIN - TOTAL 0.83 mg/dL (0.2-1.3); CALCIUM 7.8 mg/dL (8.5-10.1); CARBON DIOXIDE 19.6 mmol/L (21.0-32.0); CREATININE - SERUM 1.1 mg/dL (0.6-1.3); PROTEIN - SERUM 4.8 g/dL (6.4-8.2)
[2020-09-11 05:56] LABS: ALBUMIN 1.6 g/dL (3.4-5.0); ANION GAP 16.4 mmol/L (8-16)
--- NOTE | 2020-09-11 14:13 | NUR ---
EKG AT 1411
[2020-09-11 14:35] LABS: ANION GAP 11.8 mmol/L (8-16); CALCIUM 7.6 mg/dL (8.5-10.1); CREATININE - SERUM 1.2 mg/dL (0.6-1.3); MAGNESIUM - SERUM 1.5 mg/dL (1.8-2.4); PHOSPHOROUS 4.3 mg/dL (2.5-4.9); POTASSIUM - SERUM 4.8 mmol/L (3.5-5.1)
[2020-09-12] VITALS (23 sets, daily range): BP systolic 110–150; BP diastolic 73–94
[2020-09-12 08:33] LABS: CALC OSMOLALITY 273 mosm/kg (275-300); CALCIUM 8.4 mg/dL (8.5-10.1); CARBON DIOXIDE 23.6 mmol/L (21.0-32.0); CHLORIDE - SERUM 108 mmol/L (98-107); CREATININE - SERUM 0.8 mg/dL (0.6-1.3); GLUCOSE 86 mg/dL (74-106); MAGNESIUM - SERUM 2.5 mg/dL (1.8-2.4); PHOSPHOROUS 2.2 mg/dL (2.5-4.9); SODIUM 137 mmol/L (136-145); TROPONIN-I < 0.017 ng/mL (0.000-0.060); UREA NITROGEN 16 mg/dL (7-18); eGFR NON AFRICAN AMERICAN 78 mL/min (90-120)
[2020-09-12 09:01] LABS: BASOPHILS 0.1 % (0-2); EOSINOPHILS 0 % (0-7); LYMPHOCYTES 1.5 % (15-50); MCH 31.1 pg (26.0-34.0); MCHC 32.6 g/dL (31.0-37.0); MCV 95.3 fL (80.0-100.0); MEAN PLATELET VOLUME 9.7 fL (7.4-10.4); MONOCYTES 2.1 % (2-11); NEUTROPHILS 96.3 % (40-80); RDW 14.8 % (11.5-14.5)
--- NOTE | 2020-09-12 09:02 | NUR ---
DR. ANDUJAR ROUNDS. DOES NOT WANT LYTE PROTOCOL. OTHER ORDERS RECEIVED. CBC DRAWN, BUT STILL PENDING RESULTS. CONVEYED THIS TO HIM.
[2020-09-12 09:13] LABS: RBC 3.32 10x6/uL (4.00-5.40); WBC 12.3 10x3/uL (4.8-10.8)
[2020-09-12 09:14] LABS: HEMATOCRIT 31.7 % (36.0-48.0); HEMOGLOBIN 10.3 g/dL (12-16); PLATELET COUNT 90 10x3/uL (130-400)
--- NOTE | 2020-09-12 09:43 | NUR ---
CHANGED CVL DRSG USING STERILE TECHNIQUE. TOLERATED WELL. DR. ROSIE MCMANUS. ORDERS RECEIEVED.
[2020-09-12 11:41] LABS: PLATELET ESTIMATE DECREASED
[2020-09-12 11:43] LABS: ROULEAUX OCC
--- NOTE | 2020-09-12 11:47 | NUR ---
UP TO CHAIR AFTER WOUND VAC CHANGED PER ORDER. TOLERATED WELL
--- NOTE | 2020-09-12 14:41 | NUR ---
BACK TO BED W/ ME AND PT. COLOSTOMY CAME LOOSE AND IS CHANGED. RESECURED DRSG OVER ESTELA DRAIN 2.
[2020-09-13] VITALS (24 sets, daily range): BP systolic 108–160; BP diastolic 59–105
[2020-09-13 06:15] LABS: EOSINOPHILS 0 % (0-7); HEMOGLOBIN 10.3 g/dL (12-16); WBC 12.1 10x3/uL (4.8-10.8)
[2020-09-13 06:17] LABS: BASOPHILS 0.2 % (0-2); HEMATOCRIT 30.9 % (36.0-48.0); LYMPHOCYTES 1.9 % (15-50); MCHC 33.3 g/dL (31.0-37.0); MEAN PLATELET VOLUME 9.9 fL (7.4-10.4); MONOCYTES 2.7 % (2-11); NEUTROPHILS 95.2 % (40-80); RBC 3.32 10x6/uL (4.00-5.40); RDW 14.9 % (11.5-14.5)
[2020-09-13 06:27] LABS: PLATELET COUNT 60 10x3/uL (130-400)
[2020-09-13 06:36] LABS: CALC OSMOLALITY 284 mosm/kg (275-300); CALCIUM 8.9 mg/dL (8.5-10.1); CARBON DIOXIDE 24.7 mmol/L (21.0-32.0); CHLORIDE - SERUM 108 mmol/L (98-107); CREATININE - SERUM 0.8 mg/dL (0.6-1.3); GLUCOSE 96 mg/dL (74-106); MAGNESIUM - SERUM 2.5 mg/dL (1.8-2.4); PHOSPHOROUS 1.7 mg/dL (2.5-4.9); POTASSIUM - SERUM 3.9 mmol/L (3.5-5.1); SODIUM 141 mmol/L (136-145); UREA NITROGEN 24 mg/dL (7-18); eGFR NON AFRICAN AMERICAN 78 mL/min (90-120)
--- NOTE | 2020-09-13 08:30 | NUR ---
UP TO CHAIR SAFELY, 1 PERSON ASSIST.
--- NOTE | 2020-09-13 09:45 | NUR ---
DR. ANDUJAR ROUNDS, PULLS NGT AND ORDERS CLD. DR. VELEZ ALSO ROUNDS. NO ORDERS RECEIVED.
--- NOTE | 2020-09-13 11:26 | NUR ---
MOM CALLED, UDPATE GIVEN.
[2020-09-13 12:29] LABS: PLATELET ESTIMATE DECREASED
[2020-09-13 12:30] LABS: ROULEAUX OCC
--- NOTE | 2020-09-13 13:27 | NUR ---
Nutrition follow-up: NGT pulled by Dr. Ellison Clear liquid diet ordered Labs reviewed WT: 251# Pt up to chair RDN will monitor patients diet advancement, tolerance and progress toward nutrition goals. Follow-up: 09/17/20
--- NOTE | 2020-09-13 13:35 | NUR ---
AMBULATING IN ROOM W/ PT. BACK TO BED SAFELY.
[2020-09-14] VITALS (18 sets, daily range): BP systolic 103–160; BP diastolic 69–108
[2020-09-14 05:17] LABS: BASOPHILS 0.2 % (0-2); EOSINOPHILS 0.2 % (0-7); HEMATOCRIT 31.8 % (36.0-48.0); HEMOGLOBIN 10.6 g/dL (12-16); MCH 31.1 pg (26.0-34.0); MCHC 33.4 g/dL (31.0-37.0); MEAN PLATELET VOLUME 10.6 fL (7.4-10.4); MONOCYTES 2.7 % (2-11); NEUTROPHILS 91.9 % (40-80); PLATELET COUNT 65 10x3/uL (130-400); RBC 3.42 10x6/uL (4.00-5.40)
[2020-09-14 05:32] LABS: PLATELET ESTIMATE DECREASED
[2020-09-14 05:40] LABS: ALBUMIN 1.5 g/dL (3.4-5.0); ALKALINE PHOSPHATASE 16 U/L (30-120); ALT (SGPT) 19 U/L (10-68); BILIRUBIN - TOTAL 0.54 mg/dL (0.2-1.3); CALC OSMOLALITY 284 mosm/kg (275-300); CALCIUM 8.8 mg/dL (8.5-10.1); CARBON DIOXIDE 26.3 mmol/L (21.0-32.0); CHLORIDE - SERUM 108 mmol/L (98-107); CREATININE - SERUM 0.7 mg/dL (0.6-1.3); GLUCOSE 88 mg/dL (74-106); LDH 249 U/L (81-234); MAGNESIUM - SERUM 2.2 mg/dL (1.8-2.4); POTASSIUM - SERUM 3.7 mmol/L (3.5-5.1); PROTEIN - SERUM 4.9 g/dL (6.4-8.2); SODIUM 141 mmol/L (136-145); UREA NITROGEN 26 mg/dL (7-18); eGFR NON AFRICAN AMERICAN > 90 mL/min (90-120)
[2020-09-14 05:55] LABS: PHOSPHOROUS 1.5 mg/dL (2.5-4.9)
--- NOTE | 2020-09-14 09:49 | NUR ---
CRITICAL D DIMER REPORTED TO DR. ANDUJAR DURING HIS ROUNDS NOW. HE REPORTS THIS IS FROM SURGERY. ORDERS RECEIVED, HE WILL ENTER.
--- NOTE | 2020-09-14 10:02 | NUR ---
DR. ROSIE MCMANUS. ORDERS RECEIVED.
[2020-09-14 10:05] LABS: INR 1.18 (0.85-1.17); PROTIME 13.9 SECONDS (11.6-15.0)
[2020-09-14 10:06] LABS: APTT 27.1 SECONDS (22.8-39.4); D-DIMER-QUANTITATIVE 7.39 ug/mLFEU (0.20-0.54)
--- NOTE | 2020-09-14 11:11 | NUR ---
DILAUDID MACHINE PRECISION ENGRAVER D/C'D PER ORDER. LINES CHANGED.
--- NOTE | 2020-09-14 11:55 | NUR ---
WOUND VAC CHANGED PER ORDER.
--- NOTE | 2020-09-14 11:56 | OP ---
PATIENT NAME: CHRISTA MORRISON MEDICAL RECORD: [id number] :61 LOCATION:[facility] D.2312 ADMISSION DATE:09/10/20 SURGEON: CONNER ANDUJAR MD DATE OF OPERATION: 09/10/2020 PREOPERATIVE DIAGNOSES: 1. Perforated sigmoid colon. 2. Feculent peritonitis. 3. Sepsis. 4. COPD. 5. Hypertension. POSTOPERATIVE DIAGNOSES: 1. Perforated sigmoid colon. 2. Feculent peritonitis. 3. Sepsis. 4. COPD. 5. Hypertension. 6. Septic shock. PROCEDURES: Exploratory laparotomy with Nayla procedure. SURGEON: Conner Andujar MD. DESCRIPTION OF PROCEDURE: The patient's abdomen was prepped and draped in sterile fashion. A lower midline incision was performed and electrocautery was used to dissect through the subcutaneous tissues and fascia. Once we entered the abdominal cavity, we immediately encountered feculent material. We suctioned out a large amount of feculent material and eventually I was able to pull up an inflamed section of the sigmoid colon, which had an opening present which was about 2 cm in diameter. We elevated the rectosigmoid junction and I made an opening in the mesorectum and transected this proximal rectum using a 55 blue load CHIRS stapler. We then made a small opening in the sigmoid mesocolon and transected the proximal sigmoid colon with a 55 blue load CHRIS stapler. The mesentery was taken down with sequential clamp and tie technique and this portion of the sigmoid colon was sent off for permanent specimen. A 2-0 Prolene was used to jos the proximal end of the rectum. We then irrigated out the abdominal cavity thoroughly with 10 liters of normal saline. We broke up any adhesions that were present in the pelvis and inspected the small bowel and we could see no evidence of any other perforations or necrotic tissue. After 10 liters of fluid, the return of fluid appeared to be fairly clear. I inspected the remainder of the abdomen and saw no evidence of any further abscess pockets or feculent material. 19 round Alex drains were inserted in the bilateral lower quadrants and rested down in the patient's pelvis. We then made an opening in the patient's left upper quadrant and using electrocautery we came down through the subcutaneous tissues and made a cruciate incision on the anterior fascial layer over the rectus muscle. The rectus muscle was opened up through its fiber planes and then a longitudinal incision was made on the posterior fascial sheath. We then eviscerated the distal aspect of the proximal sigmoid colon through the opening. We took down the white line of Toldt distally in order to help mobilize this portion of the colon. The midline fascia was then closed with running #1 looped PDS times 2. We irrigated out the wound bed and placed a piece of Adaptic and a black Gelfoam with a wound VAC. The ostomy was then matured using multiple interrupted 4-0 Vicryl. At this point, a dressing was then applied and an ostomy bag. OPERATIVE REPORT [id number] CHRISTA MORRISON COMPLICATIONS: None. CONDITION: Fair. ANESTHESIA: General endotracheal. BLOOD LOSS: 50 mL. TRANSINT:[id number] Voice Confirmation ID: [id number] DOCUMENT ID: [id number] CONNER ANDUJAR MD at 1156 CC: [id number] DICTATION DATE: 09/10/20 1526 NON LICENSED NUCLEAR PLANT OPERATOR: 09/12/20 0059 ADM IN [place] [id number] [place] [id number]
--- NOTE | 2020-09-14 14:41 | NUR ---
UP WITH PT. TO CHAIR SAFELY.
--- NOTE | 2020-09-14 16:40 | NUR ---
BACK TO BED SAFELY. WATSON REMOVED PER ORDER AND EXTERNAL CATHETER PLACED. EDUCATION PROVIDED. C/O EXTREME PAIN AFTER GETTING UP AND GOING BACK TO BED IN HER BELLY. REQUESTS HANNAH. ALSO DISCUSSES SOME SOCIAL ISSUES AND REQUESTS HER MARTÍN.
[2020-09-15] VITALS (22 sets, daily range): BP systolic 113–144; BP diastolic 73–98
[2020-09-15 06:58] LABS: CALC OSMOLALITY 280 mosm/kg (275-300); CALCIUM 8.2 mg/dL (8.5-10.1); CARBON DIOXIDE 27.1 mmol/L (21.0-32.0); CHLORIDE - SERUM 108 mmol/L (98-107); CREATININE - SERUM 0.6 mg/dL (0.6-1.3); GLUCOSE 80 mg/dL (74-106); MAGNESIUM - SERUM 1.8 mg/dL (1.8-2.4); PHOSPHOROUS 2.1 mg/dL (2.5-4.9); POTASSIUM - SERUM 3.6 mmol/L (3.5-5.1); SODIUM 140 mmol/L (136-145); UREA NITROGEN 21 mg/dL (7-18); eGFR NON AFRICAN AMERICAN > 90 mL/min (90-120)
--- NOTE | 2020-09-15 07:10 | NUR ---
REPORT RECEIVED FROM OFF GOING NURSE AND PATIENT CARE ASSUMED. PATIENT LAYING IN BED ON BACK WITH HOB ELEVATED 30 DEGREES. PATIENT IS AWAKE ALERT AND ORIENTED X 4. VSS. ALL LINES DRAINS COLOSTOMY CHECKED AND PATENT. WOUND VAC ABDOMEN INTACT AND WORKING. VSS. PATIENT DENIES ANY NEEDS OR PAIN. WILL CONTINUE WITH PLAN OF CARE. SR UP X 2 BED IN LOW POSITION AND CALL LIGHT IN REACH.
[2020-09-15 07:11] LABS: HEMATOCRIT 30.8 % (36.0-48.0); HEMOGLOBIN 10.4 g/dL (12-16); MCH 31.7 pg (26.0-34.0); MCHC 33.9 g/dL (31.0-37.0); MCV 93.4 fL (80.0-100.0); MEAN PLATELET VOLUME 10.9 fL (7.4-10.4); PLATELET COUNT 61 10x3/uL (130-400); RBC 3.29 10x6/uL (4.00-5.40); RDW 15.3 % (11.5-14.5)
[2020-09-15 07:15] LABS: WBC 11.5 10x3/uL (4.8-10.8)
--- NOTE | 2020-09-15 07:45 | NUR ---
PATIENT UP TO CHAIR WITH 2 PERSON TRANSFER. PATIENT TOLERATED WELL. CALL LIGHT IN REACH.
[2020-09-15 09:13] LABS: ANISOCYTOSIS 1+; LYMPHOCYTES 7 % (15-50); MONOCYTES 6 % (2-11); NEUTROPHILS 61 % (40-80)
[2020-09-15 10:10] LABS: PLATELET ESTIMATE DECREASED
--- NOTE | 2020-09-15 12:12 | NUR ---
DR VELEZ ON UNIT. NO NEW ORDERS RECEIVED.
--- NOTE | 2020-09-15 12:30 | NUR ---
AT BS. DR VELEZ SPOKE WITH PATIENT AND SPOUSE.
--- NOTE | 2020-09-15 14:59 | NUR ---
MARBLE SIZE FIRM FECAL MATERIAL NOTED IN COLOSTOMY BAG. CHANGED BAG. PATIENT RESTING COMFORTABLY. WILL CONTINUE WITH PLAN OF CARE.
--- NOTE | 2020-09-15 19:03 | NUR ---
RECEIVED BEDSIDE REPORT. ROUNDING COMPLETE. PATIENT IS ALERT AND ORIENTED. PATIENT C/O PAIN. NORCO ADMINISTERED. CALL LIGHT WITHIN REACH. WILL CPOC.
[2020-09-16] VITALS (18 sets, daily range): BP systolic 114–159; BP diastolic 72–108; Ht 165.1 cm; Wt 107.5 kg
[2020-09-16 05:12] LABS: BASOPHILS 0.2 % (0-2); CALC OSMOLALITY 284 mosm/kg (275-300); CALCIUM 8.4 mg/dL (8.5-10.1); CARBON DIOXIDE 31.5 mmol/L (21.0-32.0); CHLORIDE - SERUM 108 mmol/L (98-107); CREATININE - SERUM 0.7 mg/dL (0.6-1.3); EOSINOPHILS 0.3 % (0-7); GLUCOSE 99 mg/dL (74-106); HEMATOCRIT 30.6 % (36.0-48.0); HEMOGLOBIN 10.2 g/dL (12-16); LYMPHOCYTES 5.4 % (15-50); MCH 30.6 pg (26.0-34.0); MCHC 33.2 g/dL (31.0-37.0); MCV 92.2 fL (80.0-100.0); MEAN PLATELET VOLUME 10.4 fL (7.4-10.4); MONOCYTES 6.3 % (2-11); NEUTROPHILS 87.8 % (40-80); PHOSPHOROUS 2.9 mg/dL (2.5-4.9); PLATELET COUNT 60 10x3/uL (130-400); POTASSIUM - SERUM 4.2 mmol/L (3.5-5.1); RBC 3.32 10x6/uL (4.00-5.40); RDW 15.1 % (11.5-14.5); SODIUM 142 mmol/L (136-145); UREA NITROGEN 17 mg/dL (7-18); eGFR NON AFRICAN AMERICAN > 90 mL/min (90-120)
[2020-09-16 05:21] LABS: WBC 14.4 10x3/uL (4.8-10.8)
--- NOTE | 2020-09-16 07:57 | NUR ---
ATTEMPTED TO GET PT UP TO CHAIR FOR BREAKFAST THIS AM. PT STATES, "I DONT WANT TO GET UP RIGHT NOW, I'M HURTING." PT SEEMS VERY GROGGY. CANNOT FINISH A SENTENCE WITHOUT HAVING TO CLOSE HER EYES. SPEECH SEEMS SLURRED. VSS AT THIS ITME. EXPLAINED THAT IT IS NOT TIME FOR PAIN MEDICATION. PT STATES "OKAY". WILL RELAY THIS INFORMATION TO DR. VELEZ ON ROUNDS THIS AM. REFUSES BREAKFAST.
[2020-09-17] VITALS (11 sets, daily range): BP systolic 107–158; BP diastolic 70–90
[2020-09-17 00:21] LABS: BILIRUBIN NEGATIVE (NEGATIVE); KETONE NEGATIVE (NEGATIVE); NITRITE NEGATIVE (NEGATIVE); UROBILINOGEN NORMAL mg/dL (< 2)
[2020-09-17 00:23] LABS: BACTERIA FEW HPF (NONE SEEN); SQUAMOUS EPITHELIAL 0-5 HPF (0-4); WHITE CELLS - URINE 0-5 HPF (0-4)
--- NOTE | 2020-09-17 01:03 | NUR ---
Colostomy wafer and bag changed. Full of both solid formed and liquid brown feces. Stoma flat and bright red, surrounding skin intact. Stoma care performed. Dressing to left ESTELA drain also changed, sutures intact, no sign of infection. Patient tolerated interventions well.
--- NOTE | 2020-09-17 01:15 | NUR ---
External catheter changed, pericare provided. No sign of skin breakdrown. Intervention explained to patient, tolerated well.
[2020-09-17 05:30] LABS: BASOPHILS 0.2 % (0-2); EOSINOPHILS 0.2 % (0-7); HEMOGLOBIN 10.2 g/dL (12-16); LYMPHOCYTES 3.5 % (15-50); MCH 30.3 pg (26.0-34.0); MCHC 32.9 g/dL (31.0-37.0); MCV 92.1 fL (80.0-100.0); MEAN PLATELET VOLUME 11.1 fL (7.4-10.4); NEUTROPHILS 92.1 % (40-80); PLATELET COUNT 71 10x3/uL (130-400); RBC 3.37 10x6/uL (4.00-5.40); RDW 14.9 % (11.5-14.5); WBC 16.9 10x3/uL (4.8-10.8)
--- NOTE | 2020-09-17 05:43 | NUR ---
Shift summary: Pain controlled with prn medication. Woundvac and ESTELA drains intact and patent. Encouraged use of incentive spirometer.
[2020-09-17 05:45] LABS: ALBUMIN 1.2 g/dL (3.4-5.0); ALKALINE PHOSPHATASE 18 U/L (30-120); ALT (SGPT) 11 U/L (10-68); BILIRUBIN - TOTAL 0.45 mg/dL (0.2-1.3); CALC OSMOLALITY 278 mosm/kg (275-300); CALCIUM 8.1 mg/dL (8.5-10.1); CARBON DIOXIDE 29.9 mmol/L (21.0-32.0); CHLORIDE - SERUM 107 mmol/L (98-107); CREATININE - SERUM 0.6 mg/dL (0.6-1.3); GLUCOSE 108 mg/dL (74-106); PROTEIN - SERUM 4.8 g/dL (6.4-8.2); SODIUM 139 mmol/L (136-145); UREA NITROGEN 12 mg/dL (7-18); eGFR NON AFRICAN AMERICAN > 90 mL/min (90-120)
--- NOTE | 2020-09-17 08:19 | NUR ---
Nutrition reassessment: Pt continues with full liquid diet per surgeon S/P colostomy with abdominal wound VAC, ESTELA drains Pts with poor to fair po intake; refusing some meals possibly due to over-sedation per nurse, physician Wt: 250# Labs reviewed Estimated needs remain the same as initial assessment on 09/11/20 Nutrition diagnosis: Inadequate oral intake R/T recent surgery AEB noted continued poor po intake. Nutrition goals: - PO intake will increase to =/> 75% of meals, snacks - Meet est fluid needs - Stable dry wt Nutrition interventions: RDN will order Ensure with meals. Follow-up on progress toward nutrition goals: 3-5 days
--- NOTE | 2020-09-17 09:27 | NUR ---
PT REFUSED TO GET OOB STATES SHE NEEDS PAIN MEDS FOR INCISIONAL PAIN AND ATIVAN AND ZOFRAN. MEDS GIVEN. INSTRUCT I.S. PT STATES THAT SHE DOES DO HER I.S. WHEN REMEMBERING. INST THAT THE ORDERS ARE Q2H.
--- NOTE | 2020-09-17 18:17 | NUR ---
PT JUST ARRIVED TO ROOM 2224. AWAKE AND ALERT. RESP EVEN AND UNLABORED WITH NO DISTRESS NOTED. CAN EXPRESSS NEEDS AND WANTS. NO C/O NOTED OR VOICED AT THIS TIME. COLOSTOMY BAG CHANGES AND ESTELA DRAIN #2 EMPTY WITH 80 ML NOTED. C/L IN REACH AT BEDSIDE.
--- NOTE | 2020-09-18 02:36 | NUR ---
PATIENT HAD COLOSTOMY CHANGED, GIVEN A CHG BED BATH, COMPLETE LINNEN CHANGE, PAIN AND ANXIETY MANAGED WITH THE PRESCRIBED PAIN AND ANXIETY MEDICATIONS, SHE IS CURRENTLY RESTING IN BED WITH HER EYES CLOSED.
[2020-09-18 04:30] VITALS: BP 117/72
--- NOTE | 2020-09-18 08:00 | NUR ---
PATIENT IN BED WITH IV ITNACT. NO COMPLAINTS OR SIGNS OF DISTRESS. BSCDS ON AND WORKING. WOUND VAC INTACT. ESTELA DRAINS X 2 CDI. CALL LIGHT WITHIN REACH.
[2020-09-18 08:56] VITALS: BP 139/82
--- NOTE | 2020-09-18 10:45 | NUR ---
CHANGED SUCTION TRACK ON VAC DRESSING BC MACHINE KEEPS SAYING BLOCKAGE. NO PROBLEMS AT THIS TIME. CALL LIGHT WITHIN REACH.
[2020-09-18 11:59] VITALS: BP 133/81
[2020-09-18 17:00] VITALS: BP 131/84
--- NOTE | 2020-09-18 18:49 | NUR ---
PATIENT IN BED WITH IV INTACT. WOUND VAC AND DRAINS INTACT. COLOSTOMY WORKING WITH NO PROBLEMS. 02 ON. NO COMPLAINTS OR SIGNS OF DISTRESS RIGHT NOW. CALL LIGHT WITHIN REACH.
[2020-09-18 20:00] VITALS: BP 137/80
[2020-09-19 04:00] VITALS: BP 133/87
--- NOTE | 2020-09-19 04:52 | NUR ---
PATIENT PAIN AND ANXIETY MANAGED WITH THE PRESCRIBED PAIN MEDICATION, CURRENTLY RESTING IN BED WITH HER EYES CLOSED.
[2020-09-19 08:10] VITALS: BP 127/74
--- NOTE | 2020-09-19 09:57 | NUR ---
AAOX4 UPON ENTERING, IN BEDSIDE CHAIR EATING BREAKFAST. ADMINISTERED MEDICATION WITH NO DIFFICULTIES. EMPTIES LEFT ABDOMEN ESTELA DRAIN, 50ML. DENIES ANY NEEDS AT THIS TIME. BEDSIDE TABLE OVER LAP, CALL LIGHT WITHIN REACH. WILL CONTINUE POC.
--- NOTE | 2020-09-19 11:00 | NUR ---
PRN NORCO FOR PAIN, PRN ZOFRAN FOR NAUSEA. RESTING IN BED. DENIES FURTHER NEEDS AT THIS TIME. WILL CONTINUE POC.
[2020-09-19 11:31] VITALS: BP 121/85
--- NOTE | 2020-09-19 13:32 | NUR ---
ADMINISTERED MEDICATION. HUNG IV ABX. TOLERATING WELL. RESTING UPRIGHT IN BED. DENIES ANY NEEDS AT THIS TIME. WILL CONTINUE POC.
[2020-09-19 15:25] VITALS: BP 124/86
--- NOTE | 2020-09-19 16:12 | NUR ---
REMOVED X2 ESTELA DRAINS. ONE FROM THE LOWER LEFT ABDOMEN AND ONE FROM THE LOWER RIGHT ABDOMEN. COVERED WITH A PRESSRE DRESSING. TOLERATED WELL. CHAGNED CVL DRESSING, TOLERATED WELL. CHANGED WOUND VAC TO LOWER ABDOMEN. REPORTS PAIN, BUT TOLERATED WELL OVERALL. LEFT RESTING COMFORTABLY. DENIES FURTHER NEEDS AT THIS TIME. WILL CONTINUE POC.
--- NOTE | 2020-09-19 17:00 | NUR ---
PRN ATIVAN FOR ANXIETY. RESTING COMFORTABLY. DENIES FURTHER NEEDS. WILL CONTINUE POC.
--- NOTE | 2020-09-19 18:31 | NUR ---
PRN NORCO FOR PAIN. RESTING IN BED, DENIES FURTHER NEEDS. WILL CONTINUE POC.
[2020-09-19 20:00] VITALS: BP 143/87
--- NOTE | 2020-09-20 03:13 | NUR ---
I have reviewed this patient and I concur with the Shift Assessment completed by the Licensed Practical Nurse today this shift.
[2020-09-20 04:00] VITALS: BP 134/83
--- NOTE | 2020-09-20 08:00 | NUR ---
PATIENT IN BED WITH IV INTACT. SLEEPING AT THIS TIME. NO SIGNS OF DISTRESS. CALL LIGHT WITHIN REACH.
[2020-09-20 08:46] VITALS: BP 146/90
[2020-09-20 10:30] LABS: BASOPHILS 0.2 % (0-2); EOSINOPHILS 0.1 % (0-7); HEMATOCRIT 29.7 % (36.0-48.0); HEMOGLOBIN 9.8 g/dL (12-16); LYMPHOCYTES 2.5 % (15-50); MCH 30.4 pg (26.0-34.0); MCHC 33.1 g/dL (31.0-37.0); MCV 92.1 fL (80.0-100.0); MEAN PLATELET VOLUME 10.9 fL (7.4-10.4); MONOCYTES 4.6 % (2-11); NEUTROPHILS 92.6 % (40-80); RBC 3.22 10x6/uL (4.00-5.40); RDW 14.4 % (11.5-14.5); WBC 17.6 10x3/uL (4.8-10.8)
[2020-09-20 10:32] LABS: PLATELET COUNT 217 10x3/uL (130-400)
[2020-09-20 10:41] LABS: ALBUMIN 1.3 g/dL (3.4-5.0); ALKALINE PHOSPHATASE 24 U/L (30-120); ALT (SGPT) 12 U/L (10-68); BILIRUBIN - TOTAL 0.32 mg/dL (0.2-1.3); CALC OSMOLALITY 269 mosm/kg (275-300); CALCIUM 7.9 mg/dL (8.5-10.1); CARBON DIOXIDE 34.8 mmol/L (21.0-32.0); CHLORIDE - SERUM 101 mmol/L (98-107); CREATININE - SERUM 0.6 mg/dL (0.6-1.3); GLUCOSE 100 mg/dL (74-106); POTASSIUM - SERUM 4.5 mmol/L (3.5-5.1); PROTEIN - SERUM 5.1 g/dL (6.4-8.2); SODIUM 136 mmol/L (136-145); UREA NITROGEN 8 mg/dL (7-18); eGFR NON AFRICAN AMERICAN > 90 mL/min (90-120)
[2020-09-20 13:10] VITALS: BP 154/81
--- NOTE | 2020-09-20 13:15 | NUR ---
PATIENT COLOSTOMY CHANGED AT THIS TIME.
--- NOTE | 2020-09-20 13:31 | NUR ---
Nutrition follow-up: Diet order: Regular PO intake ~25% average of meals; pt with some nausea per nurse Labs reviewed Wt: 236# +BM Drains removed; wound vac to abdomen remains Recommend: Pt may benefit from an appetite stimulant; Fady nutritional supplement, 1 pkt BID mixed in juice; daily multivitamin, 220 gm zinc, 1000 mg vitamin C to aid with wound healing. RDN will order Ensure with meals Will follow-up on progress toward nutrition goals in 3-5 days.
--- NOTE | 2020-09-20 14:30 | NUR ---
PATIENT UP TO CHAIR AT THIS TIME. BATH AND SHAMPOO DONE BY CONFERENCE PRODUCER. BED CHANGED. CALL LIGHT WITHIN REACH.
[2020-09-20 17:55] VITALS: BP 119/82
[2020-09-20 20:00] VITALS: BP 128/88
--- NOTE | 2020-09-21 02:09 | NUR ---
PT GIVEN ATIVAN FOR ANXIETY, PT CRYING IN BED DUE TO UNPLANED HOSPITALIZATION, WILL CONT TO MONITOR
--- NOTE | 2020-09-21 04:24 | NUR ---
I have reviewed this patient and I concur with the Shift Assessment completed by the Licensed Practical Nurse today this shift.
[2020-09-21 09:14] VITALS: BP 136/77
--- NOTE | 2020-09-21 11:52 | MORECARE ---
CASE MANAGEMENT DISCHARGE SUMMARY PATIENT: CHRISTA MORRISON UNIT: [id number] ADM DATE: 09/10/20 AGE: 54 : 61 SEX: F ROOM/BED: D.2224 AUTHOR: ZAYRA,DOC PHYSICIAN: REFERRING PHYSICIAN: ASHLEY ANDUJAR MD DATE OF SERVICE: 09/21/20 Case Management Discharge Planning Summary DCP REVIEW SUMMARY ANTICIPATED D/C DATE: EXPECTED LOS : CASE STATUS: DCP Initiated INITIAL REVIEW: 09/10/2020 INITIAL REVIEWER: Betzy Erwin FINAL DISCHARGE DISPOSITION: : FINAL REVIEWER: FINAL REVIEW DATE: DCP Focus Questions & Answers QUESTION: ANSWER : PATIENT: CHRISTA MORRISON ENCOUNTER: [id number] MEDICAL RECORD#: [id number] ADMISSION DATE: 09/10/2020 DISCHARGE DATE: ATTENDING MD: ASHLEY DALTON : AGE: 54 MARITAL STATUS: S DC PLAN ID: [id number] FACILITY: [facility] PRINTED ON: 09/21/20 11:52 CT All edits/amendments must be made on the electronic document DICTATION DATE: 09/21/20 115 FIELD ASSEMBLY SUPERVISOR: DM 09/21/20 1152 RPT#: [id number] DC DATE: STATUS: ADM IN [facility] [address] [place] [address] END OF REPORT
--- NOTE | 2020-09-21 12:04 | MORECARE ---
CASE MANAGEMENT DISCHARGE SUMMARY PATIENT: CHRISTA MORRISON UNIT: [id number] ADM DATE: 09/10/20 AGE: 54 : 61 SEX: F ROOM/BED: D.2224 AUTHOR: ZAYRA,DOC PHYSICIAN: REFERRING PHYSICIAN: ASHLEY ANDUJAR MD DATE OF SERVICE: 09/21/20 Case Management Discharge Planning Summary COMMENTS ENTERED DATE: 09/21/20 11:56 CT COMMENT TYPE: Discharge Planning REVIEWER: Betzy Erwin CM met with patient couple of days ago at bedside after obtaining verbal consent. CM discussed availability / needs of home health, REHAB and medical equipment. She previously lived at home with family and was independent. I talked with her about inpatient rehab and she was agreeable to rehab. CM to follow and assist as needed. DCP REVIEW SUMMARY ANTICIPATED D/C DATE: EXPECTED LOS : CASE STATUS: DCP Initiated INITIAL REVIEW: 09/10/2020 INITIAL REVIEWER: Betzy Erwin FINAL DISCHARGE DISPOSITION: : FINAL REVIEWER: FINAL REVIEW DATE: DCP Focus Questions & Answers DCP Screen QUESTION: ANSWER High Risk Factors: : None Walking limitation: Patient stated self rated walking limitation present? : Yes Age: : 43 - 62 Prior living environment: : Lives with others Disability ranking: : Grade 3: Moderate disability DCP Evaluation QUESTION: ANSWER Patient's ability to cope with chronic illness : d. No chronic illness Would patient like to participate in any Care Coordination programs (if applicable): : Not applicable Mental health screen: : No mental health history DCP Re-evaluation QUESTION: ANSWER Would patient like to participate in any Care Coordination programs (if applicable): : Not applicable PATIENT: CHRISTA MORRISON ENCOUNTER: [id number] MEDICAL RECORD#: [id number] ADMISSION DATE: 09/10/2020 DISCHARGE DATE: ATTENDING MD: ASHLEY DALTON : AGE: 54 MARITAL STATUS: S DC PLAN ID: [id number] FACILITY: [facility] PRINTED ON: 09/21/20 12:04 CT All edits/amendments must be made on the electronic document DICTATION DATE: 09/21/20 120 MACHINIST SUPERVISOR OUTSIDE: ALFONSO 09/21/20 1204 RPT#: [id number] DC DATE: STATUS: ADM IN [facility] [address] [place] [address] END OF REPORT
--- NOTE | 2020-09-21 13:14 | NUR ---
OCCUPATIONAL THERAPY EVALUATION IS STILL PENDING. I HAVE DISCUSSED HER WITH THE TH[facility] NURSE AND THAT THIS WOULD BE REQUIRED IN ORDER TO SUBMIT FOR AUTH. I WILL CONTINUE TO FOLLOW. LUAN DAILY RN CLINICAL LIAISON, INPATIENT REHAB.
[2020-09-21 13:24] VITALS: BP 118/74
--- NOTE | 2020-09-21 14:39 | NUR ---
PATIENT REFUSING WOUND VAC CHANGE AT THIS TIME. STATES SHE IS NOT RELAXED ENOUGH. NOT TIME FOR PAIN MED OR ANXIETY MED. WILL TRY AGAIN LATER. CALL LIGHT IN REACH.
--- NOTE | 2020-09-21 15:52 | NUR ---
PATIENT WOUND VAC CHANGED AT THIS TIME. WOUND BED PINK WITH LIGHT YELLOW/PINK DRAINAGE. SMALL AMOUNT. PATIENT TOLERATED WITH SMALL AMOUNT OF PAIN. CANISTER ALMOST FULL, CHANGED AT THS TIME. CALL LIGHT WITHIN REACH.
[2020-09-21 18:05] VITALS: BP 99/76
--- NOTE | 2020-09-21 18:52 | NUR ---
PATIENT IN BED WITH IV INTACT. RECIEVED ZOFRAN AND ATIVAN. O2 ON. CALL LIGHT WITHIN REACH.
--- NOTE | 2020-09-22 04:31 | NUR ---
PT RIVET HEATER GAS LIGHT REQUEST ATIVAN AND ZANAFLEX AT THIS TIME. IV INTACT ABX HUNG. WILL CONT TO MONITOR.
--- NOTE | 2020-09-22 04:40 | NUR ---
I have reviewed this patient and I concur with the Shift Assessment completed by the Licensed Practical Nurse today this shift.
--- NOTE | 2020-09-22 09:08 | NUR ---
AAOX4 UPON ENTERING. MEDICATIONS GIVEN, NO DIFFICULTIES. COMPLAINING OF PAIN 10/10 IN ABDOMEN AND NAUSEA. GAVE NORCO AND ZOFRAN. SITTING UP RIGHT. DENIES FURTHER NEEDS. BED IN LOWEST POSITION, BED RAILS X2, CALL LIGHT WITHIN REACH. WILL CONTINUE POC. ASSESSMENT PERFORMED AT THIS TIME.
--- NOTE | 2020-09-22 11:49 | NUR ---
PHYSICAL THERAPY HELPED PATIENT TO BEDSIDE CHAIR. DENIES ANY NEEDS AT THIS TIME. WILL CONTINUE POC.
[2020-09-22 11:59] VITALS: BP 123/75
--- NOTE | 2020-09-22 12:18 | NUR ---
HUNG IV ABX, TOLERATING WELL. PRN ATIVAN FOR ANXIETY. SITTING IN BEDSIDE CHAIR. DENIES FURTHER NEEDS. WILL CONTINUE POC.
--- NOTE | 2020-09-22 13:12 | NUR ---
I have reviewed this patient and I concur with the Shift Assessment completed by the Licensed Practical Nurse today this shift.
--- NOTE | 2020-09-22 14:04 | NUR ---
ZOFRAN FOR NAUSEA. IN BEDSIDE CHAIR. WILL CONTINUE POC.
--- NOTE | 2020-09-22 14:19 | NUR ---
FULL LINEN CHANGE. AMBUALTED BACK TO BED WITH EASE. RESTIN, DENIES NEEDS. WILL CONTINUE POC.
--- NOTE | 2020-09-22 16:35 | NUR ---
PRN NORCO FOR PAIN. ONLY BECOMES TEARFUL AFTER WALKING INTO ROOM. DENIES FURTHER NEEDS. WILL CONTINUE POC.
--- NOTE | 2020-09-22 17:11 | NUR ---
RESTING IN BED. DENIES ANY NEEDS AT THIS TIME. WILL CONTINUE POC.
--- NOTE | 2020-09-22 19:17 | NUR ---
PATIENT RESTING IN BED WITH NO S/S OF DISTRESS AND GUEST AT BEDSIDE. PATIENT REQUESTED ZANAFLEX WITH NIGHT MEDS. BED IN LOWEST POSITION AND CALL LIGHT IN REACH. ENCOURAGED PATIENT TO CALL WITH NEEDS.
--- NOTE | 2020-09-22 19:49 | NUR ---
ADMINISTERED MEDS PER ORDERS. PATIENT JIMMY WELL. ENCOURAGED TO CALL WITH NEEDS.
[2020-09-22 22:16] VITALS: BP 112/75
[2020-09-23 00:08] VITALS: BP 119/65
[2020-09-23 04:37] VITALS: BP 94/54
--- NOTE | 2020-09-23 07:15 | NUR ---
AWAKE AND ALERT. ORIENTED X3. NO C/O AT THIS TIME. LUNGS ARE CLEAR BILATERALLY, NO COUGH NOTED. SKIN IS INTACT WITHOUT REDNESS EXCEPT WOUND TO LOWER MID ABDOMEN WHICH HAS A WOUND VAC IN PLACE WITH SCANT SEROUS DRAINAGE. COLOSTOMY IS PATENT WITH SOFT ALMOST LIQUID LIGHT BROWN STOOL. CENTRAL LINE TO LEFT IJ IS PATENT WITHOUT REDNESS AT INSERTION SITE. DENIES NEEDS.
--- NOTE | 2020-09-23 07:18 | NUR ---
PURE WICK IS IN PLACE WITH SCANT OUTPUT.
--- NOTE | 2020-09-23 09:09 | NUR ---
ATE ONLY A SMALL PART OF BREAKFAST. TOOK AM MEDS WITHOUT DIFFICULTY. REQUESTED AND GIVEN ONE ATIVAN PO FOR C/O SPASMS IN BACK. WILL MONITOR
[2020-09-23 09:11] VITALS: BP 119/68
--- NOTE | 2020-09-23 11:00 | NUR ---
RESTING QUIETLY IN BED. DENIES NEEDS.
[2020-09-23 12:51] VITALS: BP 133/76
--- NOTE | 2020-09-23 14:00 | NUR ---
ATE ONLY A FEW BITES OF LUNCH. UP IN CHIAR AT BEDSIDE WITH ONE PERSON MIN ASSIST. PERFORMING BED BATH AT THIS TIME. UP TO BR WITH ONE PERSON MIN ASSIST. VOIDED CLEAR YELLOW URINE WITHOUT DIFFICULTY. EMPTIED COLOSTOMY WHILE SITTING UP.
[2020-09-23 16:32] VITALS: BP 107/73
--- NOTE | 2020-09-23 17:00 | NUR ---
SITTING UP IN BED FOR SUPPER. UNABLE TO EAT R/T C/O GAS. WILL MONITOR.
--- NOTE | 2020-09-23 17:30 | NUR ---
SPOKE WITH DR. ISMAEL RICHARDSON C/O MELLISSA. NEW ORDERS RECEIVED.
--- NOTE | 2020-09-23 20:00 | NUR ---
PATIENT RESTING IN BED WITH NO S/S OF DISTRESS AND DENIES NEEDS AT THIS TIME. BED IN LOWEST POSITION AND CALL LIGHT IN REACH. ENCOURAGED PATIENT TO CALL WITH NEEDS.
--- NOTE | 2020-09-23 20:00 | NUR ---
CLEANED PATIENT AFTER INCONTINENCE. PATIENT VOIDED AND HAD A SMALL BM. PATIENT REQUESTED TRAZADONE WITH NIGHT MEDS AND DENIES OTHER NEEDS AT THIS TIME. BED IN LOWEST POSITION AND CALL LIGHT IN REACH. ENCOURAGED TO CALL WITH NEEDS.
[2020-09-23 22:06] VITALS: BP 111/69
[2020-09-24 08:00] VITALS: BP 132/82
--- NOTE | 2020-09-24 09:07 | NUR ---
PATIENT IS A MANAGED MEDICARE AND HAS HER OT EVALUATION STILL PENDING. IN ADDITION TO THAT, SHE HAS REFUSED 4 OUT OF THE LAST 6 PHYSICAL THERAPY SESSIONS. RIGHT NOW IT DOES NOT LOOK LIKE SHE WILL BE ABLE TO PARTICIPATE IN THE REQUIRED 3 HOURS OF THERAPY, BUT WE WILL CONTINUE TO FOLLOW AND COMPLETE HER SCREEN AFTER OT AND PT TODAY. LUAN DAILY RN CLINICAL LIAISON, INPATIENT REHAB.
[2020-09-24 12:11] VITALS: BP 141/83
[2020-09-24 13:50] LABS: BASOPHILS 1.5 % (0-2); EOSINOPHILS 0.1 % (0-7); HEMATOCRIT 29.6 % (36.0-48.0); HEMOGLOBIN 9.4 g/dL (12-16); MCH 29.5 pg (26.0-34.0); MCHC 31.6 g/dL (31.0-37.0); MCV 93.3 fL (80.0-100.0); MEAN PLATELET VOLUME 9.1 fL (7.4-10.4); MONOCYTES 6.4 % (2-11); RBC 3.18 10x6/uL (4.00-5.40); RDW 14.4 % (11.5-14.5); WBC 13.1 10x3/uL (4.8-10.8)
[2020-09-24 14:02] LABS: ALBUMIN 1.4 g/dL (3.4-5.0); ALKALINE PHOSPHATASE 48 U/L (30-120); ALT (SGPT) 30 U/L (10-68); BILIRUBIN - TOTAL 0.28 mg/dL (0.2-1.3); CALC OSMOLALITY 268 mosm/kg (275-300); CALCIUM 8.5 mg/dL (8.5-10.1); CARBON DIOXIDE 34.7 mmol/L (21.0-32.0); CHLORIDE - SERUM 97 mmol/L (98-107); CREATININE - SERUM 0.8 mg/dL (0.6-1.3); GLUCOSE 142 mg/dL (74-106); POTASSIUM - SERUM 4.6 mmol/L (3.5-5.1); PROTEIN - SERUM 5.9 g/dL (6.4-8.2); SODIUM 134 mmol/L (136-145); UREA NITROGEN 10 mg/dL (7-18); eGFR NON AFRICAN AMERICAN 78 mL/min (90-120)
[2020-09-24 14:27] LABS: PLATELET COUNT 421 10x3/uL (130-400)
[2020-09-24 15:32] VITALS: BP 113/71
--- NOTE | 2020-09-24 17:32 | NUR ---
PATIENT WOUND VAC CHANGED AT THIS TIME. TOLERATED WITH SMALL AMOUNT OF PAIN. WOUND BED CLEAN AND PINK. SEROUS DRAINAGE. LEFT SCVL INTACT. NO COMPLAINTS AT THIS TIME. CALL LIGHT WITHIN REACH.
[2020-09-24 19:37] VITALS: BP 110/71
--- NOTE | 2020-09-24 20:45 | NUR ---
REC'D WALKING ROUNDS CHGE OF SHIFT SUPINE POSITION EYES CLOSED RESP.DEEP AND EVEN HOB UP 30 DEGREES.WILL CONTINUE TO MONITOR
[2020-09-25 04:03] VITALS: BP 110/69
--- NOTE | 2020-09-25 05:58 | NUR ---
I have reviewed this patient and I concur with the Shift Assessment completed by the Licensed Practical Nurse today this shift.
[2020-09-25] MEDS ORDERED: MIRALAX17 GM PO (08:32)
[2020-09-25] MEDS ORDERED: PULMICORT0.5 MG/21 UPD (08:32)
[2020-09-25] MEDS ORDERED: PEPCID PO (08:32)
[2020-09-25] MEDS ORDERED: COLACE100 MG PO (08:32)
[2020-09-25] MEDS ORDERED: PERFOROMIS20 MCG/21 UPD (08:32)
[2020-09-25] MEDS ORDERED: FLORAJEN DIGES1 EACH PO (08:32)
[2020-09-25] MEDS ORDERED: HYDROCODON-ACE1 EA10 PO (08:34)
[2020-09-25 08:45] VITALS: BP 117/79
--- NOTE | 2020-09-25 08:59 | NUR ---
ALERT AND ORIENTED. ASSESSMENT COMPLETE. BED LOW. CALL FU AND PERSONAL ITEMS IN REACH. WILL CONTINUE TO MONITOR.
[2020-09-25 09:55] LABS: % SATURATION 12 % (15-55); IRON 14 ug/dl (35-150); TOTAL IRON BIND CAPACITY 111 ug/dl (260-445); UNSAT IRON BIND CAPACITY 97 ug/dl (150-375)
--- NOTE | 2020-09-25 10:07 | NUR ---
WENT UP TO SEE THE PATIENT THIS AM. SHE STATED SHE WANTS TO COME TO REHAB. WE DISCUSSED THAT SHE WAS GOING TO HAVE TO PARTICIPATE WITH THERAPY AND NOT REFUSE BECAUSE PART OF THE REQUIREMENTS FOR INPATIENT REHAB IS THAT SHE BE ABLE TO DO 3 HOURS OF THERAPY 5 DAYS A WEEK. SHE HAS STATED HER UNDERSTANDING. I AM GOING TO ASK PHYSICAL THERAPY AND OCCUPATIONAL THERAPY TO PLEASE SEE HER THIS AM AND PUT IN NOTES. I CAN CALL HER INSURANCE COMPANY FOR AUTH IF HER THERAPY NOTES LOOK GOOD. MY MAIN CONCERN HERE IS THAT SHE HAD HER OXYGEN OFF FOR MAYBE A MINUTE AND HER SATS WERE 82%, ONCE BACK ON THE 4L N/C IN ALMOST 5 MINUTES SHE WAS STILL SITTING AT 88%. FLOORWALKER IN THE ROOM WITH HER WHEN I LEFT. I DID ENCOURAGE HER TO NOT TALK AND TO TAKE DEEP BREATHS. HER HEART RATE WAS >120. I WILL WAIT FOR THERAPY NOTES AND THEN DISCUSS HER WITH THE BUTTONHOLE MAKER HAND. LUAN DAILY RN CLINICAL LIAISON, INPATIENT REHAB.
--- NOTE | 2020-09-25 10:17 | NUR ---
OT NOTE: PT DOING BETTER TODAY. REPORTS THAT SHE FEELS A LITTLE BETTER.. C/O GAS PAIN. BED MOB WITH MOD ASSIST; MOD ASSIST TO GET FEET ON FLOOR; GOOD SITTING BALANCE. ABLE TO PERFORM SIMPLE GROOMING TASKS WITH SET UP TO WASH FACE AND HANDS; MIN ASSIST WITH DONNING GOWN; MAX ASSIST FOR DONNING SOCKS DUE TO ABD PAIN WHEN BENDING OVER.. PT WILL BENEFIT FROM SOCK AIDE AND /OR DRESSING STICK. SIT TO STAND WITH MIN ASSIST WITH USE OF WALKER; IN ROOM AMBULATION WITH WALKER AND MIN ASSIST.. PT DOING WELL BUT SOB WITH MIN EXERTION. PT MUCH MORE MOTIVATED TODAY. 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 NII KIRKPATRICK, OTR/L [phone]
[2020-09-25 12:00] VITALS: BP 115/62
--- NOTE | 2020-09-25 13:52 | NUR ---
200CC EMPTIED FROM OSTOMY BAG.
--- NOTE | 2020-09-25 13:54 | NUR ---
Nutrition reassessment: Diet order: Regular as tolerated PO intake has improved to ~70% average of some meals; po intake poor yesterday due to c/o gas. Colostomy working Labs reviewed Wound VAC continues to abdomen Ht: 5'5" Wt: 236# Estimated needs based on AdjBW of 70 [id number] kcal (25-35 kcal/kg AdjBW) 70-105 gm protein (1.0-1.5 gm/kg AdjBW) [id number] ml fluid or per MD Nutrition diagnosis: Inadequate oral intake R/T excess gas AEB po intake < 75% of meals, snacks Nutrition goals: - Meet est fluid needs - Stable wt - PO intake will increase to =/> 75% of meals, snacks for wound healing Nutrition interventions: Will provide food choices with selective menus and honor food preferences. Recommend: Daily MVI, 220 mg zinc, 1000 mg vitamin C to aid with wound healing. Also Fady nutritional supplement, 1 pkt BID mixed in juice for wound healing. RDN will follow-up on pts progress toward nutrition goals in 3-5 days.
--- NOTE | 2020-09-25 14:49 | NUR ---
I HAVE RECEIVED AUTHORIZATION FROM THE [employer] FOR REHAB. AUTH # IS [id number]. WE WILL BE ABLE TO BRING HER LATER TODAY AFTER HER ELECTRONIC SCREEN IS COMPLETED. I HAVE NOTIFIED NII ROCA RN CM OF THIS AND THE PATIENT. THANK YOU AGAIN FOR THIS REFERRAL. LUAN DAILY RN CLINICAL LIAISON, INPATIENT REHAB.
--- NOTE | 2020-09-25 15:46 | NUR ---
LEFT SUBCLAVIAN CENTRAL LINE REMOVED FOR DC WITH TIP INTACT. WAITING BED FROM REHAB FOR DC.
--- NOTE | 2020-09-25 18:07 | NUR ---
ATTEMPTED TO CALL REPORT TO REHAB. TRISTIN NAYAK, STATES "I CAN'T GET ANYONE TO TAKE REPORT THEY'RE ALL SAYING THEY'RE BUSY, I'M SORRY. THIS IS THE SECOND TIME SOMEONE HAS TRIED TO GIVE REPORT." SPOKE WITH KILLIAN WALL, WHO STATES TAKE PATIENT DOWN AND GIVE BEDSIDE REPORT.
--- NOTE | 2020-09-25 18:49 | MORECARE ---
CASE MANAGEMENT DISCHARGE SUMMARY PATIENT: CHRISTA MORRISON UNIT: [id number] ADM DATE: 09/10/20 AGE: 54 : 61 SEX: F ROOM/BED: D.2224 AUTHOR: ZAYRA,DOC PHYSICIAN: REFERRING PHYSICIAN: ASHLEY ANDUJAR MD DATE OF SERVICE: 09/25/20 Case Management Discharge Planning Summary COMMENTS ENTERED DATE: 09/21/20 11:56 CT COMMENT TYPE: Discharge Planning REVIEWER: Betzy Erwin CM met with patient couple of days ago at bedside after obtaining verbal consent. CM discussed availability / needs of home health, REHAB and medical equipment. She previously lived at home with family and was independent. I talked with her about inpatient rehab and she was agreeable to rehab. CM to follow and assist as needed. DCP REVIEW SUMMARY ANTICIPATED D/C DATE: EXPECTED LOS : CASE STATUS: DCP Initiated INITIAL REVIEW: 09/10/2020 INITIAL REVIEWER: Betzy Erwin FINAL DISCHARGE DISPOSITION: : FINAL REVIEWER: FINAL REVIEW DATE: DCP Focus Questions & Answers DCP Screen QUESTION: ANSWER High Risk Factors: : None Walking limitation: Patient stated self rated walking limitation present? : Yes Age: : 43 - 62 Prior living environment: : Lives with others Disability ranking: : Grade 3: Moderate disability DCP Evaluation QUESTION: ANSWER Patient's ability to cope with chronic illness : d. No chronic illness Would patient like to participate in any Care Coordination programs (if applicable): : Not applicable Mental health screen: : No mental health history DCP Re-evaluation QUESTION: ANSWER Would patient like to participate in any Care Coordination programs (if applicable): : Not applicable PATIENT: CHRISTA MORRISON ENCOUNTER: [id number] MEDICAL RECORD#: [id number] ADMISSION DATE: 09/10/2020 DISCHARGE DATE: 09/25/2020 ATTENDING MD: ASHLEY DALTON : AGE: 54 MARITAL STATUS: S DC PLAN ID: [id number] FACILITY: [facility] PRINTED ON: 09/25/20 18:49 CT All edits/amendments must be made on the electronic document DICTATION DATE: 09/25/201848 SOFTWARE CONFIGURATION SPECIALIST: ALFONSO 09/25/201848 RPT#: [id number] DC DATE:09/25/20 STATUS: DIS IN [facility] [address] [place] [address] END OF REPORT
--- NOTE | 2020-09-27 10:38 | MORECARE ---
CASE MANAGEMENT DISCHARGE SUMMARY PATIENT: CHRISTA MORRISON UNIT: [id number] ADM DATE: 09/10/20 AGE: 54 : 61 SEX: F ROOM/BED: D.2224 AUTHOR: ZAYRA,DOC PHYSICIAN: REFERRING PHYSICIAN: ASHLEY ANDUJAR MD DATE OF SERVICE: 09/27/20 Case Management Discharge Planning Summary COMMENTS ENTERED DATE: 09/21/20 11:56 CT COMMENT TYPE: Discharge Planning REVIEWER: Betzy Erwin CM met with patient couple of days ago at bedside after obtaining verbal consent. CM discussed availability / needs of home health, REHAB and medical equipment. She previously lived at home with family and was independent. I talked with her about inpatient rehab and she was agreeable to rehab. CM to follow and assist as needed. DCP REVIEW SUMMARY ANTICIPATED D/C DATE: EXPECTED LOS : CASE STATUS: DCP Initiated INITIAL REVIEW: 09/10/2020 INITIAL REVIEWER: Betzy rEwin FINAL DISCHARGE DISPOSITION: : FINAL REVIEWER: FINAL REVIEW DATE: DCP Focus Questions & Answers DCP Screen QUESTION: ANSWER High Risk Factors: : None Walking limitation: Patient stated self rated walking limitation present? : Yes Age: : 43 - 62 Prior living environment: : Lives with others Disability ranking: : Grade 3: Moderate disability DCP Evaluation QUESTION: ANSWER Patient's ability to cope with chronic illness : d. No chronic illness Would patient like to participate in any Care Coordination programs (if applicable): : Not applicable Mental health screen: : No mental health history DCP Re-evaluation QUESTION: ANSWER Would patient like to participate in any Care Coordination programs (if applicable): : Not applicable PATIENT: CHRISTA MORRISON ENCOUNTER: [id number] MEDICAL RECORD#: [id number] ADMISSION DATE: 09/10/2020 DISCHARGE DATE: 09/25/2020 ATTENDING MD: ASHLEY DALTON : AGE: 54 MARITAL STATUS: S DC PLAN ID: [id number] FACILITY: [facility] PRINTED ON: 09/27/20 10:38 CT All edits/amendments must be made on the electronic document DICTATION DATE: 09/27/20 1038 TRAFFIC CONTROL SPECIALIST: ALFONSO 09/27/20 1038 RPT#: [id number] DC DATE:09/25/20 STATUS: DIS IN [facility] [address] [place] [address] END OF REPORT
== END 2020-09-25 18:46 | DRG 853 ==
LOC: D.ER 06:04 → D.ICU 16:36 → D.MS 09-17 17:51
PROVIDERS: Internal Medicine Hematology & Oncology; Internal Medicine Pulmonary Disease; Student in an Organized Health Care Education/Training Program; Surgery; ADMIT Surgery; ATTEND Surgery
PROC: 0DBN0ZZ Excision of Sigmoid Colon, Open Approach (ICD-10-PCS; principal; 2020-09-10 12:45)
PROC: 05H633Z Insertion of Infusion Device into Left Subclavian Vein, Percutaneous Approach (ICD-10-PCS; 2020-09-10 12:45)
DX: A41.9 Sepsis, unspecified organism (principal); K63.1 Perforation of intestine (nontraumatic); K65.8 Other peritonitis; R65.21 Severe sepsis with septic shock; J18.9 Pneumonia, unspecified organism; J96.10 Chronic respiratory failure, unspecified whether with hypoxia or hypercapnia; J90 Pleural effusion, not elsewhere classified; I31.3 Pericardial effusion (noninflammatory); J44.1 Chronic obstructive pulmonary disease with (acute) exacerbation; I10 Essential (primary) hypertension; F41.8 Other specified anxiety disorders; M19.90 Unspecified osteoarthritis, unspecified site; K80.20 Calculus of gallbladder without cholecystitis without obstruction; F17.200 Nicotine dependence, unspecified, uncomplicated; E83.42 Hypomagnesemia; D64.9 Anemia, unspecified; D69.6 Thrombocytopenia, unspecified; E83.39 Other disorders of phosphorus metabolism; E66.01 Morbid (severe) obesity due to excess calories; Z68.39 Body mass index [BMI] 39.0-39.9, adult

== ENCOUNTER 2020-09-25 19:19 | Inpatient (IN) | payer OTHER ==
[~2020-09-25] VITALS: Ht 165.1 cm; Wt 107.5 kg
[~2020-09-25 19:19] MED LIST changes: +COLACE100 MG PO; +FLORAJEN DIGES1 EACH PO; +HYDROCODON-ACE1 EA10 PO; +MIRALAX17 GM PO; +PEPCID PO; +PERFOROMIS20 MCG/21 UPD; +PULMICORT0.5 MG/21 UPD
--- NOTE | 2020-09-25 20:00 | NUR ---
ADMIT FOR PHYSICAL REHAB AND SERVICES OF DR MONTES. AWAKE AND ALERT. O2/3L ON PER NASAL CANNULA. HX OF COPD. SHORT OF BREATH WITH MINIMAL EXERTION. ABDOMINAL INCISION OPEN WITH WOUND VAC IN PLACE. COLOSTOMY BAG IN PLACE WITH LIQUID LIGHT BROWN STOOL IN BAG. ORIENTED X 4. MILDY ANXIOUS. REQUEST ANTI-ANXIETY MEDICATION TO BE GIVEN AT HS.
[2020-09-25 20:25] VITALS: BP 128/87
[2020-09-25 21:02] VITALS: BP 128/87; BMI 39.5
--- NOTE | 2020-09-26 04:58 | NUR ---
QUIET HOURS. NO ACUTE CHANGES IN CONDITION THIS SHIFT. RESTING IN BED WITH NO DISTRESS NOTED. WOUND VAC IN PLACE. COLOSTOMY BAG IN PLACE WITH LIQUID BROWN STOOL.
[2020-09-26 07:31] LABS: BASOPHILS 0.9 % (0-2); EOSINOPHILS 0.2 % (0-7); HEMATOCRIT 29.5 % (36.0-48.0); HEMOGLOBIN 9.8 g/dL (12-16); LYMPHOCYTES 12.4 % (15-50); MCH 30.4 pg (26.0-34.0); MCV 92.1 fL (80.0-100.0); MEAN PLATELET VOLUME 8.5 fL (7.4-10.4); MONOCYTES 8.7 % (2-11); NEUTROPHILS 77.8 % (40-80); PLATELET COUNT 477 10x3/uL (130-400); RBC 3.21 10x6/uL (4.00-5.40); RDW 14.6 % (11.5-14.5); WBC 10.2 10x3/uL (4.8-10.8)
[2020-09-26 07:46] VITALS: BP 106/70
[2020-09-26 07:54] LABS: CALC OSMOLALITY 272 mosm/kg (275-300); CALCIUM 8.7 mg/dL (8.5-10.1); CARBON DIOXIDE 35.6 mmol/L (21.0-32.0); CHLORIDE - SERUM 100 mmol/L (98-107); CREATININE - SERUM 0.6 mg/dL (0.6-1.3); GLUCOSE 100 mg/dL (74-106); POTASSIUM - SERUM 4.4 mmol/L (3.5-5.1); SODIUM 137 mmol/L (136-145); UREA NITROGEN 9 mg/dL (7-18); eGFR NON AFRICAN AMERICAN > 90 mL/min (90-120)
--- NOTE | 2020-09-26 08:00 | NUR ---
SHIFT ASSMT COMPLETED.
[2020-09-26 13:18] VITALS: Ht 165.1 cm; Wt 107.5 kg
--- NOTE | 2020-09-26 15:58 | NUR ---
CARE TEAM MEETING: PATIENT IS NEW TO UNIT AND WILL BE RA AT NEXT MEETING. WILL CONTINUE TO FOLLOW WITH PATIENT AND WILL ASSIST WITH NEEDS.
--- NOTE | 2020-09-26 20:04 | NUR ---
AWAKE AND ALERT. RESTING IN BED WITH O2/3L PER NASAL CANNULA. COLOSTOMY IN PLACE. WOUND VAC IN PLACE TO ABDOMINAL INCISION. NO DISTRESS NOTED.
[2020-09-26 20:45] VITALS: BP 123/77
--- NOTE | 2020-09-27 05:19 | NUR ---
QUIET HOURS. NO ACUTE CHANGES IN CONDITION THIS SHIFT. RESTING IN BED WITH RESPIRATIONS UNLABORED. NO DISTRESS NOTED. WOUND VAC IN PLACE. COLOSTOMY IN PLACE.
--- NOTE | 2020-09-27 08:00 | NUR ---
PATIENT IS ALERT/ORIENT. SITTING UP IN BED EATING BREAKFAST. CALL LIGHT WITHIN REACH. VOICES NO NEEDS AT THIS TIME. WILL CONTINUE WITH PLAN OF CARE
[2020-09-27 08:39] VITALS: BP 138/82
--- NOTE | 2020-09-27 11:15 | NUR ---
TEACHING DONE ON COLOSTOMY CARE. PATIENT DID 100% SUPERVISION ONLY.
[2020-09-27 21:35] VITALS: BP 118/71
--- NOTE | 2020-09-27 23:34 | NUR ---
PT IN BED WATCHING TV, A&O, NO NEEDS NOTED, FLUIDS/CL WITHIN REACH,
[2020-09-28 08:00] VITALS: BP 119/67
[2020-09-28 11:42] LABS: BASOPHILS 0.7 % (0-2); EOSINOPHILS 0.4 % (0-7); HEMATOCRIT 27.7 % (36.0-48.0); HEMOGLOBIN 9.1 g/dL (12-16); LYMPHOCYTES 12.2 % (15-50); MCH 30.3 pg (26.0-34.0); MCHC 32.8 g/dL (31.0-37.0); MCV 92.5 fL (80.0-100.0); MEAN PLATELET VOLUME 8.1 fL (7.4-10.4); MONOCYTES 8.4 % (2-11); NEUTROPHILS 78.3 % (40-80); PLATELET COUNT 468 10x3/uL (130-400); RBC 2.99 10x6/uL (4.00-5.40); RDW 14.8 % (11.5-14.5); WBC 10.2 10x3/uL (4.8-10.8)
[2020-09-28 11:49] LABS: CALC OSMOLALITY 264 mosm/kg (275-300); CALCIUM 8.3 mg/dL (8.5-10.1); CARBON DIOXIDE 33.4 mmol/L (21.0-32.0); CHLORIDE - SERUM 98 mmol/L (98-107); CREATININE - SERUM 0.7 mg/dL (0.6-1.3); GLUCOSE 109 mg/dL (74-106); POTASSIUM - SERUM 3.6 mmol/L (3.5-5.1); SODIUM 133 mmol/L (136-145); UREA NITROGEN 8 mg/dL (7-18); eGFR NON AFRICAN AMERICAN > 90 mL/min (90-120)
--- NOTE | 2020-09-28 18:00 | NUR ---
ASSESSMENT COMPLETED EARLIER THIS AM. PATIENT HAS RECIEVED PRN MEDS- SEE JUN. DISCUSSED HER CHANGING HER THERAPY TIMES D/T NOT BEING A MORNING PERSON & STATED LATER IN DAY THAT THEY HAD BEEN CHANGED. COLOSTOMY WAFER & BAG CHANGED- PATIENT INTERESTED IN LEARNING/TEACHING OF OSTOMY CARE & DRESSING. WOND VAC TO ABD CHANGED W/O DIFFICULTY. PATIENT TOLERATED ALL WELL. CONTINUE TO MONITOR, CONT CURRENT PLAN OF CARE.
--- NOTE | 2020-09-28 19:38 | NUR ---
AWAKE AND ALERT. RESTING IN BED WITH RESPIRATIONS UNLABORED ON O2/3L NASAL CANNULA. WOUND VAC IN PLACE. COLOSTOMY IN PLACE WITH SMALL AMOUNT OF LIQUID BROWN STOOL. STATES SHE IS TIRED FROM THERAPY AND GETTING HER WOUND VAC CHANGED. WILL MONITOR. CALL LIGHT IN REACH.
[2020-09-28 19:55] VITALS: BP 113/76
--- NOTE | 2020-09-29 05:05 | NUR ---
QUIET HOURS. NO ACUTE CHANGES IN CONDITION THIS SHIFT. RESTING IN BED WITH NO DISTRESS NOTED. WOUND VAC IN PLACE. COLOSTOMY PATENT. O2/3L ON PER NASAL CANNULA.
[2020-09-29 07:00] VITALS: BP 125/68
[2020-09-29 07:38] LABS: EOSINOPHILS 0.3 % (0-7); HEMATOCRIT 26.7 % (36.0-48.0); HEMOGLOBIN 8.7 g/dL (12-16); LYMPHOCYTES 12.5 % (15-50); MCH 29.8 pg (26.0-34.0); MCHC 32.5 g/dL (31.0-37.0); MCV 91.8 fL (80.0-100.0); MEAN PLATELET VOLUME 8.3 fL (7.4-10.4); MONOCYTES 8.2 % (2-11); PLATELET COUNT 437 10x3/uL (130-400); RDW 14.5 % (11.5-14.5); WBC 10.5 10x3/uL (4.8-10.8)
[2020-09-29 07:47] LABS: CALCIUM 8.7 mg/dL (8.5-10.1); CARBON DIOXIDE 32.3 mmol/L (21.0-32.0); CHLORIDE - SERUM 99 mmol/L (98-107); CREATININE - SERUM 0.6 mg/dL (0.6-1.3); GLUCOSE 100 mg/dL (74-106); SODIUM 136 mmol/L (136-145); eGFR NON AFRICAN AMERICAN > 90 mL/min (90-120)
[2020-09-29 07:53] LABS: CALC OSMOLALITY 271 mosm/kg (275-300); POTASSIUM - SERUM 4.4 mmol/L (3.5-5.1); UREA NITROGEN 12 mg/dL (7-18)
--- NOTE | 2020-09-29 08:00 | NUR ---
SHIFT ASSMT COMPLETED.COLOSTOMY APPLIANCE IN PLACE.C/L IN REACH.
[2020-09-29 19:00] VITALS: BP 140/68
--- NOTE | 2020-09-29 20:15 | NUR ---
RESTING IN BED, NO DISTRESS NOTED, C/O NOT FEELING WELL TODAY, CONT TO MONITOR NAUSEA
[2020-09-30 19:00] VITALS: BP 117/69
--- NOTE | 2020-09-30 22:20 | NUR ---
RESTING IN BED, NO DISTRESS NOTED, PT TAKING CARE OF HER COLOSTOMY, WOUND VAC IN PLACE TO LOWER ABD, CONT TO MONITOR, O2 PER NC AT 3L, MEDICATED FOR PAIN
--- NOTE | 2020-10-01 08:00 | NUR ---
PATIENT IS ALERT/ORIENT. SITTING UP IN BED TO EAT BREAKFAST. CALL LIGHT WITHIN REACH. VOICES NO NEEDS AT THIS TIME. WILL CONTINUE WITH PLAN OF CARE
[2020-10-01 08:22] VITALS: BP 138/75
--- NOTE | 2020-10-01 12:48 | NUR ---
CLINICAL UPDATES FAXED TO [facility] , AUTH. # [id number] WITH FAX CONFORMATION RECIEVED
--- NOTE | 2020-10-01 14:10 | NUR ---
WOUND VAC CHANGED ON RIGHT LOWER ABDOMEN. 800ML DARK YELLOW DRAINAGE IN CARTRIDGE. CARTRIDEGED CHANGED OUT
--- NOTE | 2020-10-01 16:12 | NUR ---
COLOSTOMY APLIANCE CHANGED. LARGE AMOUNT OF SOFT BOWN STOOL IN COLOSTOMY BAG
--- NOTE | 2020-10-01 17:00 | NUR ---
DR MONTES INTO SEE PATIENT. NEW ORDERS RECEIVED
--- NOTE | 2020-10-01 18:32 | NUR ---
I have reviewed this patient and I concur with the Shift Assessment completed by the Licensed Practical Nurse today this shift.
--- NOTE | 2020-10-01 19:29 | NUR ---
AWAKE AND ALERT. RESTING IN BED WITH NO DISTRESS NOTED. WOUND VAC TO ABDOMINAL SURGICAL INCISION INTACT. COLOSTOMY INTACT. CALL LIGHT IN REACH.
[2020-10-01 20:51] VITALS: BP 127/75
[2020-10-02 08:23] VITALS: BP 110/63
--- NOTE | 2020-10-02 16:34 | NUR ---
Nutrition Re-Assessment Diet: Regular + Ensure TID PO intake: 75-100% x all meals, she states that her appetite is up and down. States that she wants to continue getting Ensure because she drinks one if she feels that she wasn't able to eat much of her meal. She states that she also drinks one if she wakes up in the middle of night and is hungry. Last BM: 09/30/20 Wt: 237# (09/26/20) Meds noted: probiotics, miralax Labs reviewed Estimated nutrition needs: 1750-2050kcal (25-30kcal/kg Adj), 70-84gms protein (1-1.2gms/kg), 1750-2050mL fluid (or per MD) Nutrition diagnosis: Altered GI function r/t h/o perferated bowel and peritonitis recent bowel surgery AEB new colostomy. Nutrition goals: -PO intake =/>75% meals -Meet fluid needs without fluid overload -Dry weight stable DHS; ultimate goal is for weight to trend down ~1-2#/week until BMI nearer WNL Recommendations/Interventions: -Recommend continue current diet. Will continue to honor food preferences. -RD will follow-up within 7 days.
--- NOTE | 2020-10-02 20:00 | NUR ---
AWAKE AND ALERT. RESTING IN BED WITH RESPIRATIONS UNLABORED. WOUND VAC TO ABDOMEN IN PLACE. COLOSTOMY BAG IN PLACE AND APPEARS TO BE FUNCTIONING WITH NOTED SOFT BROWN STOOL IN BAG. NO DISTRESS NOTED. CALL LIGHT IN REACH.
[2020-10-02 22:01] VITALS: BP 118/75
--- NOTE | 2020-10-03 05:10 | NUR ---
QUIET HOURS. NO ACUTE CHANGES IN CONDITION THIS SHIFT. RESTING IN BED WITH NO DISTRESS NOTED.
[2020-10-03 07:49] LABS: BASOPHILS 0.9 % (0-2); EOSINOPHILS 0.6 % (0-7); HEMATOCRIT 26.6 % (36.0-48.0); HEMOGLOBIN 8.7 g/dL (12-16); LYMPHOCYTES 15.7 % (15-50); MCH 30.1 pg (26.0-34.0); MCHC 32.7 g/dL (31.0-37.0); MEAN PLATELET VOLUME 7.7 fL (7.4-10.4); MONOCYTES 6.6 % (2-11); NEUTROPHILS 76.2 % (40-80); PLATELET COUNT 437 10x3/uL (130-400); RBC 2.89 10x6/uL (4.00-5.40); RDW 14.8 % (11.5-14.5); WBC 10.5 10x3/uL (4.8-10.8)
[2020-10-03 07:57] LABS: CALC OSMOLALITY 278 mosm/kg (275-300); CALCIUM 8.6 mg/dL (8.5-10.1); CARBON DIOXIDE 31.3 mmol/L (21.0-32.0); CHLORIDE - SERUM 102 mmol/L (98-107); CREATININE - SERUM 0.7 mg/dL (0.6-1.3); GLUCOSE 145 mg/dL (74-106); SODIUM 138 mmol/L (136-145); UREA NITROGEN 12 mg/dL (7-18); eGFR NON AFRICAN AMERICAN > 90 mL/min (90-120)
[2020-10-03 08:06] VITALS: BP 117/72
--- NOTE | 2020-10-03 15:33 | NUR ---
CARE TEAM MEETING: PATIENT IS DOING WELL IN THERAPY. HER TENATIVE DC DATE IS 10/08/20. SPOKE WITH HER AT THIS TIME SHE IS GOING TO DC HOME WITH A FRIEND. SHE WILL NEED O2, WALKER. HER PCP IS DR. MARTINEZ. SHE HAS A WOUND VAC FROM DR. ANDUJAR AND WILL DISCHARGE WITH ONE AT THIS TIME. SHE IS THINKING ABOUT GOING TO [place] . SHE WILL LET ME KNOW FOR SURE WHERE SHE IS GOING BY THURSDAY. WILL CONTINUE TO FOLLOW WITH PATIENT.
[2020-10-03 19:33] VITALS: BP 131/71
--- NOTE | 2020-10-03 20:02 | NUR ---
RESTING IN BED, NO DISTRESS NOTED, WOUND VAC TO ABD, CHANGED TODAY, COLOSTOMY IN PLACE TO ABD, STOOL SOFT, CONT TO MONITOR PAIN
--- NOTE | 2020-10-04 01:00 | NUR ---
MEDICATED FOR PAIN, FAMILY SLEEPING IN ROOM, CONT TO MONITOR
--- NOTE | 2020-10-04 08:00 | NUR ---
SHIFT ASSMT COMPLETED.
[2020-10-04 08:09] VITALS: BP 122/74
--- NOTE | 2020-10-04 20:00 | NUR ---
AWAKE AND ALERT. RESTING IN BED WITH RESPIRAITONS UNLABORED. WOUND VAC DRESSINGS INTACT TO ABDOMEN. COLOSTOMY IN PLACE. NO DISTRESS NOTED. CALL LIGHT IN REACH. O2/3L ON PER NASAL CANNULA.
[2020-10-04 22:00] VITALS: BP 132/84
--- NOTE | 2020-10-05 02:50 | NUR ---
ZANAFLEX GIVEN PO FOR C/O MUSCLE ACHES. WILL MONITOR.
--- NOTE | 2020-10-05 05:20 | NUR ---
QUIET HOURS. RECENTLY MEDICATED FOR PAIN. SEE MAR. RESTING IN BED WITH RESPIRTIONS UNLABORED. WOUND VAC IN PLACE. COLOSTOMY BAG IN PLACE. NO ACUTE DISTRESS NOTED. CALL LIGHT IN REACH.
[2020-10-05 06:58] LABS: BASOPHILS 0.6 % (0-2); EOSINOPHILS 0.9 % (0-7); HEMATOCRIT 23.9 % (36.0-48.0); LYMPHOCYTES 16.6 % (15-50); MCH 30.5 pg (26.0-34.0); MCHC 33.3 g/dL (31.0-37.0); MCV 91.6 fL (80.0-100.0); MEAN PLATELET VOLUME 7.9 fL (7.4-10.4); MONOCYTES 7.2 % (2-11); NEUTROPHILS 74.7 % (40-80); PLATELET COUNT 430 10x3/uL (130-400); RBC 2.61 10x6/uL (4.00-5.40); RDW 14.9 % (11.5-14.5); WBC 10.6 10x3/uL (4.8-10.8)
[2020-10-05 07:12] LABS: CALC OSMOLALITY 274 mosm/kg (275-300); CALCIUM 8.7 mg/dL (8.5-10.1); CARBON DIOXIDE 31.4 mmol/L (21.0-32.0); CHLORIDE - SERUM 103 mmol/L (98-107); CREATININE - SERUM 0.5 mg/dL (0.6-1.3); GLUCOSE 94 mg/dL (74-106); POTASSIUM - SERUM 4.2 mmol/L (3.5-5.1); SODIUM 138 mmol/L (136-145); UREA NITROGEN 9 mg/dL (7-18); eGFR NON AFRICAN AMERICAN > 90 mL/min (90-120)
[2020-10-05 08:00] VITALS: BP 127/72
--- NOTE | 2020-10-05 20:00 | NUR ---
AWAKE AND ALERT. RESTING IN BED WITH RESPIRATIONS UNLABOREED. WOUND VAC IN PLACE. COLOSTOMY IN PLACE. C/O GENERLIZED PAIN. WILL MEDICATE ORDERED.
--- NOTE | 2020-10-05 20:00 | NUR ---
AWAKE AND ALERT. RESTING IN BED. WOUND VAC IN PLACE. COLOSTOMY IN PLACE. UNIT OF PRBC COMPLETE WITH NO SIGNS OF ADVERSE REACTION. RESPIRATIONS UNLABORED. NO DISTRESS NOTED.
[2020-10-05 21:13] VITALS: BP 119/71
--- NOTE | 2020-10-06 05:41 | NUR ---
QUIET HOURS. NO ACUTE CHANGES IN CONDITION THIS SHIFT. WOUND VAC IN PLACE. COLOSTOMY IN PLACE. PATIENT CHANGED COLOSTOMY PER HERSELF EARLIER IN SHIFT. RESTING IN BED WITH NO DISTRESS NOTED.
[2020-10-06 07:28] VITALS: BP 127/85
--- NOTE | 2020-10-06 16:51 | NUR ---
SITTING UP IN BED WATCHING TV. WOUND VAC CHANGED TODAY. WOUND BED IS BEEFY RED WITH NO BLOODY DRAINAGE NOTED. EDGES DO NOT APPEAR TO BE CURLING IN. NO ODOR NOTED. COLOSTOMY BAG CHANGED TODAY. NURSE DONE LENGTHY AND DETAILED TEACHING WITH PT ABOUT HOW TO CHANGE HER OWN COLOSTOMY BAG AND MEASURE AND CUT WAFERS. CALL LIGHT IN REACH
[2020-10-06 19:00] VITALS: BP 124/72
--- NOTE | 2020-10-06 19:33 | NUR ---
RESTING IN BED, NO DISTRESS NOTED, WOUND VAC AND COLOSTOMY IN PLACE TO ABD, CONT TO MONITOR PAIN
[2020-10-07 06:37] VITALS: BP 138/83
[2020-10-07 19:00] VITALS: BP 129/81
--- NOTE | 2020-10-07 20:00 | NUR ---
RESTING IN BED, NO DISTRESS NOTED, WOUND VAC IN PLACE AND COLOSTOMY TO ABD, CONT TO MONITOR SAFETY AND PT ABILITY TO CARE FOR COLOSTOMY
[2020-10-08 07:02] LABS: BASOPHILS 0.8 % (0-2); EOSINOPHILS 0.4 % (0-7); HEMATOCRIT 29.3 % (36.0-48.0); HEMOGLOBIN 9.6 g/dL (12-16); LYMPHOCYTES 16.4 % (15-50); MCH 29.3 pg (26.0-34.0); MCHC 32.7 g/dL (31.0-37.0); MCV 89.6 fL (80.0-100.0); MEAN PLATELET VOLUME 7.8 fL (7.4-10.4); MONOCYTES 6.9 % (2-11); NEUTROPHILS 75.5 % (40-80); PLATELET COUNT 499 10x3/uL (130-400); RBC 3.27 10x6/uL (4.00-5.40); RDW 15.2 % (11.5-14.5); WBC 9.9 10x3/uL (4.8-10.8)
[2020-10-08 07:11] LABS: CALC OSMOLALITY 269 mosm/kg (275-300); CALCIUM 8.7 mg/dL (8.5-10.1); CHLORIDE - SERUM 102 mmol/L (98-107); CREATININE - SERUM 0.5 mg/dL (0.6-1.3); GLUCOSE 94 mg/dL (74-106); POTASSIUM - SERUM 4.1 mmol/L (3.5-5.1); SODIUM 136 mmol/L (136-145); UREA NITROGEN 8 mg/dL (7-18); eGFR NON AFRICAN AMERICAN > 90 mL/min (90-120)
[2020-10-08 08:10] VITALS: BP 134/79
[2020-10-08] MEDS ORDERED: ATIVAN0.5 MG PO (08:52)
[2020-10-08] MEDS ORDERED: HYDROCODON-ACE1 EA10 PO (08:52)
--- NOTE | 2020-10-08 10:01 | NUR ---
SPOKE WITH SERVANDO SIMS AT DR DE LA TORRE OFFICE. KEEP WOUND VAC ON WOUND AND CHANGE MWF TILL RETURN TO DR CALVO ON OCTOBER 24 @ 8040.
--- NOTE | 2020-10-08 10:11 | NUR ---
WOUND SIZE IS APPX 9X13 CM. WOUND BED IS PINK. DRAINAGE IS MODERATE AMOUNT AND SEROUS IN COLOR.
--- NOTE | 2020-10-08 10:22 | NUR ---
SITTING UP IN BED WATCHING TV. DENIES NEEDS OR C/O. SCHEDULED TO DC HOME TODAY. GETS UP AND GOES TO BATHROOM BY HERSELF. SEROUS DRAINAGE NOTED TO WOUND VAC. COLOSTOMY WAFER IN PLACE. NO LEAKAGE NOTED. CALL LIGHT IN REACH
--- NOTE | 2020-10-08 15:32 | NUR ---
PATIENT IS DISCHARGING HOME TODAY WITH FAMILY. [facility] WILL PROVIDE THERAPY AT HOME. TYLOR SINGED, IMM SERVED AND EXPLIANED, ONE GIVEN TO PATIENT AND ONE FILED IN CHART. NO COMPARE DATA REVIEWED.[facility] WILL CALL PATIENT WITH AN APPOINTMENT. [facility] WILL DELIVER A WALKER AND O2 TO PATIENT, [facility] WILL PROVIDE WOUND VAC FOR PATIENT.PATIENT WILL SEE DR. MARTINEZ NEEDED. DR. VELEZ 11/19/20 @ 9:45, DR. ANDUJAR 10/24/20 @ 9:45. DISCHARGE INSTRUCTIONS FAXED TO [facility] , PCP, AND REVIEWED WITH PATIENT. DC INSTRUCTIONS FAXED TO PATIENT INSURANCE [facility] , AUTH. # [id number] WITH FAX CONFORMATION RECIEVED
--- NOTE | 2020-10-09 12:19 | RHP ---
PATIENT: CHRISTA MORRISON MEDICAL RECORD: [id number] ACCOUNT: [id number] LOCATION:[facility]1117 : 61 ADMISSION DATE: 09/25/20 REHABILITATION HISTORY AND PHYSICAL EXAMINATION POST ADMISSION PHYSICIAN EXAMINATION POSTADMISSION PHYSICAL EXAMINATION AND HISTORY AND PHYSICAL ADMITTING DIAGNOSIS: Critical illness myopathy. HISTORY OF PRESENT ILLNESS: The patient is a 54-year-old female patient presented in the ED on 09/10/2020 for sudden onset of left lower abdominal pain. She states the pain began as mild cramping and began increase in severity. She had mild hematochezia prior to this with diarrhea. Workup showed a mild leukocytosis. She was noted to have a lactic acid that was elevated. She had a [id number]-px-vniuz volume of intraperitoneal and retroperitoneal free air suspicious for perforated viscus. An emergent surgical consultation was done. The sigmoid colon showed mild wall thickening associated with a large pocket of adjacent free air. The patient was transferred to the ICU until ER was available. She was admitted with perforated abdominal viscus, anxiety and depression, and osteoarthritis. She returned to the ICU postop with a wound VAC to her abdominal incision. She had 2 drains. Her postoperative diagnosis included perforated sigmoid colon, feculent peritonitis, sepsis, COPD. During her stays in the ICU, she received IV antibiotics. Pulmonary was consulted secondary to shortness of breath. She remained n.p.o. with NG tube to low intermittent suction until 09/13/2020 until she started passing some gas through her colostomy. The patient has continued on IV antibiotics and was placed on a diet and advanced to regular. She is on electrolytes per protocol. Oncology and hematology were consulted secondary to her anemia. The patient was eventually stable enough and now feels like she can come to inpatient rehabilitation. Prior to this, she was independent without assist device or oxygen. 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 She is now mid to mod assist for bed mobility, sit to stand and transfers, mod assist for most hygiene and max assist for lower extremity dressing and donning foot where she will require intensive therapy to get back to her prior level of functioning along with a multidisciplinary team, PT, OT, and MD and rehab nursing. Comorbidities include sepsis, septic shock, perforated diverticulum, colostomy, tachycardia, atelectasis, and thrombocytopenia. PAST MEDICAL HISTORY: Significant for hypertension, COPD, allergic rhinitis, kidney stones, menopause, depression, and anxiety. PAST SURGICAL HISTORY: Includes knee replacement, tubal ligation and abdominal surgery. ALLERGIES: PENICILLIN, CLINDAMYCIN, AND ZITHROMAX. CURRENT MEDICATIONS: Include Floranex one cap daily. She is on Deltasone 5 mg daily. She is on Daliresp 250 mcg daily, polyethylene glycol 17 grams in 8 water ounces of water daily, Nicoderm patch, Atrovent 0.5 mg q.i.d., Xopenex 0.63 mg q.i.d. Perforomist 20 mcg b.i.d., budesonide 0.5 mg b.i.d., Singulair 10 mg at bedtime, Pepcid 20 mg b.i.d., Mucinex 1 tab b.i.d., Colace 100 mg b.i.d., Zanaflex 2 mg b.i.d. p.r.n., Ativan 0.5 mg q.6 hours, Ventolin updrafts, and Rives 5/325 one tab q. 6 hours p.r.n. pain. HISTORY AND PHYSICAL [id number] CHRISTA MORRISON HABITS: She does have a history of tobacco use. FAMILY HISTORY: Noncontributory. SOCIAL HISTORY: The patient hopes to return back home and get back to her prior level of functioning. REVIEW OF SYSTEMS: GENERAL: She does complain of weakness and fatigue. HEENT: Denies cold, cough, congestion. CARDIOVASCULAR: Denies any chest pain. PHYSICAL EXAMINATION: VITAL SIGNS: Stable, afebrile. GENERAL: A somewhat obese female in no acute distress upon exam. HEENT: Normocephalic and atraumatic. Mucosa moist. NECK: Supple. No adenopathy. LUNGS: Clear at this time. No wheezes or rales. HEART: Regular rate and rhythm. No murmurs, rubs, or gallops. ABDOMEN: Soft. Colostomy is intact and the area looks good. EXTREMITIES: No clubbing, cyanosis, or edema. NEUROLOGIC: She does have some weakness. LABORATORY DATA: Her white count is 10.2, H&H 9.8 and 29.5, and platelet count is noted to be 477. Her sodium is 137, potassium 4.4, BUN and creatinine of 9 and 0.6, and blood sugar was noted to be 100. ASSESSMENT: This is a 54-year-old female patient admitted to rehab with a working diagnosis of critical illness myopathy secondary to a perforated bowel. The patient has potential to make improvement. We instituted the following multidisciplinary therapies including, but not limited to physical, occupational, respiratory, speech, nutritional services, prosthetics and orthotics. Given her complex medical condition and risks for more complications, rehabilitation services cannot be provided at a low level of care such as detention facility. PLAN: 1. Admit to [facility] for inpatient therapy to include the following disciplines; A. Physical therapy to improve gait, all transfer skills and bed mobility to independent level. B. Occupational therapy to improve activities of daily living. C. Case management to help with discharge planning and placement options. D. Nutrition to assist with nutritional needs. E. Rehabilitation nursing to assist in monitoring the patient's underlying medical conditions and to assist with any type of bowel or bladder management. 2. The patient's current medication and medical care will be continued. 3. The patient will be placed on standard fall precautions. 4. Watch for any signs of further peritonitis. She is off antibiotics at this time. We will discuss her case today at noon with the care team. TRANSINT:[id number] Voice Confirmation ID: [id number] DOCUMENT ID: [id number] 10/03/2020 Edited for kojo GHOSH. HISTORY AND PHYSICAL [id number] CHRISTA MORRISON notes whether there has been none or any medical/functional change since admission: - No change since preadmission screen. AUGIE attests patient continues to be appropriate for IRF: - Continues to be appropriate. HARLEEN MONTES MD at 1219 CC: [id number] DICTATION DATE: 09/26/2012 PILOT CONTROL OPERATOR: 09/26/20 0947 DIS IN 10/08/20 [facility] [address] [id number]
== END 2020-10-08 19:45 | disposition home health service (06) | DRG 91 ==
LOC: D.REHAB 19:19
PROVIDERS: ADMIT Emergency Medicine; ATTEND Emergency Medicine
DX: G72.81 Critical illness myopathy (principal); A41.9 Sepsis, unspecified organism; R65.21 Severe sepsis with septic shock; K57.80 Diverticulitis of intestine, part unspecified, with perforation and abscess without bleeding; J98.11 Atelectasis; E87.1 Hypo-osmolality and hyponatremia; D69.6 Thrombocytopenia, unspecified; R00.0 Tachycardia, unspecified; I10 Essential (primary) hypertension; J44.9 Chronic obstructive pulmonary disease, unspecified; J30.9 Allergic rhinitis, unspecified; D64.9 Anemia, unspecified; R53.81 Other malaise; R26.2 Difficulty in walking, not elsewhere classified; E87.8 Other disorders of electrolyte and fluid balance, not elsewhere classified; R53.83 Other fatigue; R73.9 Hyperglycemia, unspecified; E83.42 Hypomagnesemia; I95.9 Hypotension, unspecified; E66.01 Morbid (severe) obesity due to excess calories; M19.90 Unspecified osteoarthritis, unspecified site; F41.8 Other specified anxiety disorders

== ENCOUNTER 2020-10-16 15:56 | Emergency (ER) | payer OTHER ==
[~2020-10-16] VITALS: Ht 165.1 cm; Wt 90.9 kg
[~2020-10-16 15:56] MED LIST changes: +ATIVAN0.5 MG PO
[2020-10-16 16:06] VITALS: Ht 165.1 cm; Wt 90.9 kg
[2020-10-16 23:11] VITALS: BP 118/62
== END 2020-10-16 23:11 | disposition home or self-care (01) ==
LOC: D.ER 15:56
DX: S31.109A Unspecified open wound of abdominal wall, unspecified quadrant without penetration into peritoneal cavity, initial encounter (principal); I10 Essential (primary) hypertension; J44.9 Chronic obstructive pulmonary disease, unspecified